=== PATIENT | male | born 1955 | race Two or more races ===

== ENCOUNTER → 2016-09-29 | Outpatient (CLI) | payer MEDICARE ==
[2016-09-29 10:10] LABS: Urine RBC None Seen /hpf (0 - 3)
[2016-09-29 10:25] LABS: CONDITION Y; DEFINITIVE SEE PRINTOUT; Hematocrit 48.6 % (41.0-53.0); Hemoglobin 16.8 g/dL (13.5-17.5); Mean Corpuscular Hemoglobin 34.3 pg (28.0-32.0); Mean Corpuscular Hgb Conc. 34.6 g/dL (32.0-36.0); Mean Corpuscular Volume 99.2 fL (80.0-100.0); Mean Platelet Volume 7.5 fL (7.4-10.4); Platelet Count (auto) 248 10^3/uL (140-450); Red Cell Distribution Width 14.1 % (11.6-16.0); White Blood Cell 7.4 10^3/uL (4.4-10.8)
[2016-09-29 10:28] LABS: Metamyelocytes % 0; Myelocytes % 0; Promyelocytes % 0; Reactive Lymphocytes 0
[2016-09-29 10:37] LABS: Urine Bilirubin Negative (Negative); Urine Blood Negative /uL (Negative); Urine Color Yellow (Yellow); Urine Glucose Normal (Normal); Urine Ketone Negative (Negative); Urine Nitrite Negative (Negative); Urine Squamous Epithelial Cell FEW /hpf (<5); Urine Urobilinogen Normal (Negative); Urine pH 6.5 (5.0-8.0)
[2016-09-29 10:48] LABS: Albumin 3.9 g/dL (3.4-5.0); BUN/Creatinine Ratio 16.2; Bilirubin, Total 0.6 mg/dL (0.2-1.0); Calcium 8.9 mg/dL (8.5-10.1); Total Protein 7.7 g/dL (6.4-8.2)
[2016-09-29 10:54] LABS: Platelet Estimate Adequate; RBC Morphology Normal
== END | disposition home or self-care (01) ==
LOC: LAB 10:00
PROVIDERS: ATTEND Family Medicine
DX: E78.5 Hyperlipidemia, unspecified (principal)
CPT/HCPCS: 36415; 80053; 80061; 81001; 85007; 85027

== ENCOUNTER → 2017-12-01 | Outpatient (CLI) | payer MEDICARE ==
[2017-12-01 12:43] LABS: Hematocrit 46.9 % (41.0-53.0); Hemoglobin 16.1 g/dL (13.5-17.5); Mean Corpuscular Hemoglobin 33.8 pg (28.0-32.0); Mean Corpuscular Hgb Conc. 34.3 g/dL (32.0-36.0); Mean Corpuscular Volume 98.7 fL (80.0-100.0); Platelet Count (auto) 188 10^3/uL (140-450); Red Blood Cells 4.75 10^6/uL (4.5-5.90); Red Cell Distribution Width 14.3 % (11.8-14.3); White Blood Cell 7.9 10^3/uL (4.4-10.8)
[2017-12-01 12:48] LABS: Urine Bacteria NONE SEEN /hpf (None Seen); Urine Blood Negative /uL (Negative); Urine Mucus FEW (None Seen); Urine Specific Gravity 1.023 (1.001-1.035); Urine WBC 2 /hpf (0 - 3)
[2017-12-01 12:54] LABS: Band Neutrophils % (manual) 0; Basophils % (manual) 0 (0.0-2.0); Blast Cells 0; Metamyelocytes % 0; Myelocytes % 0; Promyelocytes % 0; Reactive Lymphocytes 0
[2017-12-01 13:37] LABS: Albumin 4.1 g/dL (3.4-5.0); BUN/Creatinine Ratio 11.1; Bilirubin, Total 0.7 mg/dL (0.2-1.0); Calcium 8.9 mg/dL (8.5-10.1); Total Protein 7.9 g/dL (6.4-8.2)
[2017-12-01 14:00] LABS: Eosinophils % (manual) 9 (0-7); Lymphocytes % (manual) 29 (10.0-50.0); Monocytes % (manual) 9 (0-12)
== END | disposition home or self-care (01) ==
LOC: LAB 10:58
PROVIDERS: ATTEND Nurse Practitioner
DX: E78.5 Hyperlipidemia, unspecified (principal)
CPT/HCPCS: 36415; 80053; 80061; 81001; 85007; 85027

== ENCOUNTER → 2018-05-16 | Outpatient (CLI) | payer MEDICARE ==
[2018-05-16 10:46] LABS: Basophils # (auto) 0.1 uL; Eosinophils # (auto) 0.7 uL; Hemoglobin 18.9 g/dL (13.5-17.5); Monocytes # (auto) 0.5 uL; Neutrophils # (auto) 4.6 uL; White Blood Cell 7.1 10^3/uL (4.4-10.8)
[2018-05-16 10:48] LABS: Hematocrit 54.1 % (41.0-53.0); Lymphocytes # (auto) 1.2 uL; Lymphocytes % (auto) 17.6 % (10.0-50.0); Mean Corpuscular Hemoglobin 35.7 pg (28.0-32.0); Mean Corpuscular Hgb Conc. 34.9 g/dL (32.0-36.0); Mean Corpuscular Volume 102.3 fL (80.0-100.0); Neutrophils % (auto) 64.4 % (37.0-80.0); Nucleated Red Blood Cells % 1.1 %; Platelet Count (auto) 200 10^3/uL (140-450); Red Blood Cells 5.29 10^6/uL (4.5-5.90); Red Cell Distribution Width 13.3 % (11.8-14.3)
[2018-05-16 11:19] LABS: Chloride 102 mmol/L (98-107); Potassium 3.9 mmol/L (3.5-5.1); Sodium 137 mmol/L (136-145)
[2018-05-16 11:30] LABS: Alanine Aminotransferase 50 U/L (16-61); Albumin 3.9 g/dL (3.4-5.0); Alkaline Phosphatase 90 U/L (45-117); Anion Gap 8 (5-15); Aspartate Aminotransferase 19 U/L (15-37); BUN/Creatinine Ratio 14.5; Bilirubin, Total 0.7 mg/dL (0.2-1.0); Blood Urea Nitrogen 16 mg/dL (7-18); Carbon Dioxide 27 mmol/L (21-32); Cholesterol 246 mg/dL (< 200); GFR African American 87 mL/min; GFR Non-African American 72 mL/min; Glucose 378 mg/dL (74-106); HDL Cholesterol 40 mg/dL (40-59); Total Protein 7.9 g/dL (6.4-8.2); Triglycerides 425 mg/dL (< 150); Urine Bacteria NONE SEEN /hpf (None Seen); Urine Blood Negative /uL (Negative); Urine Specific Gravity 1.039 (1.001-1.035); Urine WBC <1 /hpf (0 - 3)
== END | disposition home or self-care (01) ==
LOC: LAB 10:06
PROVIDERS: ATTEND Nurse Practitioner
DX: E78.5 Hyperlipidemia, unspecified (principal); R73.9 Hyperglycemia, unspecified
CPT/HCPCS: 36415; 80053; 80061; 81001; 83036; 84443; 85025

== ENCOUNTER → 2018-08-11 | Outpatient (CLI) | payer MEDICARE ==
[2018-08-11 10:51] LABS: Hemoglobin 16.4 g/dL (13.5-17.5); Mean Corpuscular Hemoglobin 34.1 pg (28.0-32.0); Mean Corpuscular Hgb Conc. 34.5 g/dL (32.0-36.0)
[2018-08-11 10:53] LABS: Hematocrit 47.5 % (41.0-53.0); Mean Corpuscular Volume 98.7 fL (80.0-100.0); Platelet Count (auto) 208 10^3/uL (140-450); Red Blood Cells 4.81 10^6/uL (4.5-5.90); Red Cell Distribution Width 13.3 % (11.8-14.3); White Blood Cell 8.2 10^3/uL (4.4-10.8)
[2018-08-11 10:58] LABS: Basophils % (manual) 0 (0.0-2.0); Blast Cells 0; Metamyelocytes % 0; Myelocytes % 0; Promyelocytes % 0; Reactive Lymphocytes 0
[2018-08-11 11:02] LABS: Urine Bacteria NONE SEEN /hpf (None Seen); Urine Blood Negative /uL (Negative); Urine Mucus FEW (None Seen); Urine Specific Gravity 1.026 (1.001-1.035); Urine WBC 3 /hpf (0 - 3)
[2018-08-11 11:20] LABS: Albumin 3.9 g/dL (3.4-5.0); Potassium 4.2 mmol/L (3.5-5.1)
[2018-08-11 11:27] LABS: BUN/Creatinine Ratio 15.2; Bilirubin, Total 0.6 mg/dL (0.2-1.0); Total Protein 7.6 g/dL (6.4-8.2)
[2018-08-11 13:56] LABS: Band Neutrophils % (manual) 0; Eosinophils % (manual) 17 (0-7); Lymphocytes % (manual) 26 (10.0-50.0); Monocytes % (manual) 7 (0-12)
== END | disposition home or self-care (01) ==
LOC: LAB 10:23
PROVIDERS: ATTEND Nurse Practitioner
DX: E78.5 Hyperlipidemia, unspecified (principal); E11.29 Type 2 diabetes mellitus with other diabetic kidney complication
CPT/HCPCS: 36415; 80053; 80061; 81001; 82043; 83036; 84443; 85007; 85027

== ENCOUNTER → 2018-11-30 | Outpatient (CLI) | payer MEDICARE ==
[2018-11-30 11:42] LABS: Hematocrit 46.8 % (41.0-53.0); Hemoglobin 16.3 g/dL (13.5-17.5); Mean Corpuscular Hemoglobin 33.9 pg (28.0-32.0); Mean Corpuscular Hgb Conc. 34.9 g/dL (32.0-36.0); Mean Corpuscular Volume 97.2 fL (80.0-100.0); Platelet Count (auto) 180 10^3/uL (140-450); Red Blood Cells 4.82 10^6/uL (4.5-5.90); Red Cell Distribution Width 13.6 % (11.8-14.3); White Blood Cell 7.4 10^3/uL (4.4-10.8)
[2018-11-30 11:45] LABS: Basophils % (manual) 0 (0.0-2.0); Blast Cells 0; Metamyelocytes % 0; Myelocytes % 0; Promyelocytes % 0; Reactive Lymphocytes 0
[2018-11-30 11:49] LABS: Urine Blood Negative /uL (Negative); Urine Specific Gravity 1.017 (1.001-1.035)
[2018-11-30 12:12] LABS: Band Neutrophils % (manual) 7; Eosinophils % (manual) 22 (0-7); Lymphocytes % (manual) 19 (10.0-50.0); Monocytes % (manual) 7 (0-12)
[2018-11-30 12:13] LABS: Albumin 4.1 g/dL (3.4-5.0); BUN/Creatinine Ratio 13.9; Calcium 8.9 mg/dL (8.5-10.1)
[2018-11-30 12:19] LABS: Bilirubin, Total 0.7 mg/dL (0.2-1.0); Total Protein 7.6 g/dL (6.4-8.2)
== END | disposition home or self-care (01) ==
LOC: LAB 10:58
PROVIDERS: ATTEND Nurse Practitioner
DX: Z11.2 Encounter for screening for other bacterial diseases (principal); E11.9 Type 2 diabetes mellitus without complications; E78.5 Hyperlipidemia, unspecified
CPT/HCPCS: 36415; 80053; 80061; 81003; 82043; 83036; 84443; 85007; 85027

== ENCOUNTER → 2019-04-24 | Outpatient (CLI) | payer MEDICARE ==
[2019-04-24 11:12] LABS: Basophils # (auto) 0.1 uL; Eosinophils # (auto) 0.9 uL; Hemoglobin 16.9 g/dL (13.5-17.5); Lymphocytes # (auto) 1.2 uL; Monocytes # (auto) 0.5 uL; Neutrophils # (auto) 3.6 uL; Nucleated Red Blood Cells % 0.1 %; White Blood Cell 6.3 10^3/uL (4.4-10.8)
[2019-04-24 11:14] LABS: Basophils % (auto) 1.1 % (0.0-2.0); Hematocrit 48.5 % (41.0-53.0); Lymphocytes % (auto) 18.4 % (10.0-50.0); Mean Corpuscular Hemoglobin 34.1 pg (28.0-32.0); Mean Corpuscular Hgb Conc. 34.8 g/dL (32.0-36.0); Mean Corpuscular Volume 98.1 fL (80.0-100.0); Monocytes % (auto) 8.6 % (0.0-12.0); Neutrophils % (auto) 56.9 % (37.0-80.0); Platelet Count (auto) 195 10^3/uL (140-450); Red Blood Cells 4.94 10^6/uL (4.5-5.90); Red Cell Distribution Width 13.7 % (11.8-14.3)
[2019-04-24 11:57] LABS: Albumin 3.9 g/dL (3.4-5.0); Calcium 8.9 mg/dL (8.5-10.1)
[2019-04-24 12:02] LABS: BUN/Creatinine Ratio 14.1; Bilirubin, Total 0.6 mg/dL (0.2-1.0); Total Protein 7.6 g/dL (6.4-8.2)
== END | disposition home or self-care (01) ==
LOC: LAB 10:47
PROVIDERS: ATTEND Nurse Practitioner
DX: E11.9 Type 2 diabetes mellitus without complications (principal); E78.5 Hyperlipidemia, unspecified
CPT/HCPCS: 36415; 80053; 80061; 83036; 85025

== ENCOUNTER → 2019-09-26 | Outpatient (CLI) | payer MEDICARE ==
[2019-09-26 12:05] LABS: Urine Bacteria FEW /hpf (None Seen); Urine Blood Negative /uL (Negative); Urine Mucus FEW (None Seen); Urine Specific Gravity 1.032 (1.001-1.035); Urine WBC 10 /hpf (0 - 3)
[2019-09-26 12:08] LABS: White Blood Cell 6.1 10^3/uL (4.4-10.8)
[2019-09-26 12:10] LABS: Hematocrit 46.1 % (41.0-53.0); Hemoglobin 16.1 g/dL (13.5-17.5); Mean Corpuscular Hgb Conc. 34.9 g/dL (32.0-36.0); Mean Corpuscular Volume 103.1 fL (80.0-100.0); Platelet Count (auto) 155 10^3/uL (140-450); Red Blood Cells 4.47 10^6/uL (4.5-5.90); Red Cell Distribution Width 13.6 % (11.8-14.3)
[2019-09-26 12:21] LABS: Band Neutrophils % (manual) 0; Basophils % (manual) 0 (0.0-2.0); Blast Cells 0; Metamyelocytes % 0; Myelocytes % 0; Promyelocytes % 0; Reactive Lymphocytes 0
[2019-09-26 12:29] LABS: Albumin 4.1 g/dL (3.4-5.0); Calcium 8.6 mg/dL (8.5-10.1); Potassium 4.3 mmol/L (3.5-5.1)
[2019-09-26 12:33] LABS: BUN/Creatinine Ratio 17.1; Bilirubin, Total 1.1 mg/dL (0.2-1.0); Total Protein 7.3 g/dL (6.4-8.2)
[2019-09-26 12:39] LABS: Eosinophils % (manual) 17 (0-7); Lymphocytes % (manual) 25 (10.0-50.0); Monocytes % (manual) 5 (0-12)
== END | disposition home or self-care (01) ==
LOC: LAB 11:46
PROVIDERS: ATTEND Nurse Practitioner
DX: E11.9 Type 2 diabetes mellitus without complications (principal); I10 Essential (primary) hypertension; E78.5 Hyperlipidemia, unspecified
CPT/HCPCS: 36415; 80053; 80061; 81001; 82043; 83036; 84443; 85007; 85027

== ENCOUNTER → 2020-06-18 | Outpatient (CLI) | payer MEDICARE ==
[2020-06-18 10:20] LABS: Hemoglobin 16.4 g/dL (13.5-17.5)
[2020-06-18 10:22] LABS: Hematocrit 46.8 % (41.0-53.0); Mean Corpuscular Hemoglobin 35.2 pg (28.0-32.0); Mean Corpuscular Volume 100.7 fL (80.0-100.0); Platelet Count (auto) 179 10^3/uL (140-450); Red Blood Cells 4.65 10^6/uL (4.5-5.90); Red Cell Distribution Width 13.2 % (11.8-14.3)
[2020-06-18 10:24] LABS: Band Neutrophils % (manual) 0; Blast Cells 0; Metamyelocytes % 0; Promyelocytes % 0; Reactive Lymphocytes 0
[2020-06-18 10:33] LABS: Albumin 3.9 g/dL (3.4-5.0); Calcium 9.2 mg/dL (8.5-10.1); Potassium 4.4 mmol/L (3.5-5.1)
[2020-06-18 10:39] LABS: BUN/Creatinine Ratio 16.3; Bilirubin, Total 0.7 mg/dL (0.2-1.0); Total Protein 7.4 g/dL (6.4-8.2)
[2020-06-18 11:22] LABS: Basophils % (manual) 1 (0.0-2.0); Eosinophils % (manual) 25 (0-7); Lymphocytes % (manual) 21 (10.0-50.0); Monocytes % (manual) 9 (0-12); Myelocytes % 1
[2020-06-18 12:11] LABS: Urine Bacteria NONE SEEN /hpf (None Seen); Urine Blood Negative /uL (Negative); Urine Specific Gravity 1.012 (1.001-1.035); Urine WBC 1 /hpf (0 - 3)
== END | disposition home or self-care (01) ==
LOC: LAB 09:47
PROVIDERS: ATTEND Nurse Practitioner
DX: I10 Essential (primary) hypertension (principal); E11.9 Type 2 diabetes mellitus without complications; E78.5 Hyperlipidemia, unspecified
CPT/HCPCS: 36415; 80053; 80061; 81001; 82043; 83036; 85007; 85027

== ENCOUNTER → 2020-10-15 | Outpatient (CLI) | payer MEDICARE ==
[2020-10-15 08:59] LABS: Cholesterol 164 mg/dL (< 200); HDL Cholesterol 44 mg/dL (40-59); LDL Cholesterol 84 mg/dL (< 100); Triglycerides 173 mg/dL (< 150)
== END | disposition home or self-care (01) ==
LOC: LAB 07:43
PROVIDERS: ATTEND Nurse Practitioner
DX: E78.5 Hyperlipidemia, unspecified (principal)
CPT/HCPCS: 36415; 80061

== ENCOUNTER → 2021-06-09 | Outpatient (CLI) | payer MEDICARE ==
[2021-06-09 09:37] LABS: Hematocrit 44.7 % (41.0-53.0); Mean Corpuscular Hgb Conc. 35.9 g/dL (32.0-36.0); Mean Corpuscular Volume 100.4 fL (80.0-100.0); Red Blood Cells 4.45 10^6/uL (4.5-5.90); Red Cell Distribution Width 13.1 % (11.8-14.3); Urine Bacteria NONE SEEN /hpf (None Seen); Urine Blood Negative /uL (Negative); Urine Specific Gravity 1.007 (1.001-1.035); Urine WBC 1 /hpf (0 - 3); White Blood Cell 6.2 10^3/uL (4.4-10.8)
[2021-06-09 09:41] LABS: Band Neutrophils % (manual) 0; Basophils % (manual) 0 (0.0-2.0); Blast Cells 0; Metamyelocytes % 0; Myelocytes % 0; Promyelocytes % 0; Reactive Lymphocytes 0
[2021-06-09 10:02] LABS: Eosinophils % (manual) 27 (0-7); Lymphocytes % (manual) 19 (10.0-50.0); Monocytes % (manual) 6 (0-12)
[2021-06-09 10:05] LABS: Potassium 4.3 mmol/L (3.5-5.1)
[2021-06-09 10:17] LABS: BUN/Creatinine Ratio 13.7; Bilirubin, Total 0.5 mg/dL (0.2-1.0); Calcium 8.9 mg/dL (8.5-10.1); Total Protein 7.7 g/dL (6.4-8.2)
== END | disposition home or self-care (01) ==
LOC: LAB 09:16
PROVIDERS: ATTEND Nurse Practitioner
DX: E11.9 Type 2 diabetes mellitus without complications (principal); I10 Essential (primary) hypertension; E78.5 Hyperlipidemia, unspecified
CPT/HCPCS: 36415; 80053; 80061; 81001; 82043; 83036; 85007; 85027

== ENCOUNTER → 2022-03-31 | Outpatient (CLI) | payer MEDICARE ==
[2022-03-31 10:31] LABS: Red Blood Cells 4.75 10^6/uL (4.5-5.90); White Blood Cell 6.7 10^3/uL (4.4-10.8)
[2022-03-31 10:32] LABS: Hematocrit 48.1 % (41.0-53.0); Hemoglobin 16.5 g/dL (13.5-17.5); Mean Corpuscular Hemoglobin 34.7 pg (28.0-32.0); Mean Corpuscular Hgb Conc. 34.3 g/dL (32.0-36.0); Mean Corpuscular Volume 101.2 fL (80.0-100.0); Red Cell Distribution Width 13.5 % (11.8-14.3)
[2022-03-31 10:34] LABS: Basophils % (manual) 0 (0.0-2.0); Blast Cells 0; Metamyelocytes % 0; Myelocytes % 0; Promyelocytes % 0
[2022-03-31 11:00] LABS: Urine Bacteria NONE SEEN /hpf (None Seen); Urine Blood Negative /uL (Negative); Urine Specific Gravity 1.004 (1.001-1.035); Urine WBC <1 /hpf (0 - 3)
[2022-03-31 11:04] LABS: Albumin 4.2 g/dL (3.4-5.0); Calcium 8.9 mg/dL (8.5-10.1); Potassium 4.5 mmol/L (3.5-5.1)
[2022-03-31 11:10] LABS: BUN/Creatinine Ratio 13.4; Bilirubin, Total 0.9 mg/dL (0.2-1.0)
[2022-03-31 12:30] LABS: Band Neutrophils % (manual) 4; Eosinophils % (manual) 25 (0-7); Lymphocytes % (manual) 25 (10.0-50.0); Monocytes % (manual) 7 (0-12); Reactive Lymphocytes 3
== END | disposition home or self-care (01) ==
LOC: LAB 10:14
PROVIDERS: ATTEND Nurse Practitioner
DX: I10 Essential (primary) hypertension (principal); E78.5 Hyperlipidemia, unspecified; E11.9 Type 2 diabetes mellitus without complications
CPT/HCPCS: 36415; 80053; 80061; 81001; 82043; 83036; 85007; 85027

== ENCOUNTER → 2023-10-01 | Outpatient (CLI) | payer MEDICARE ==
[2023-10-01 11:28] LABS: Basophils # (auto) 0.1 10 ^3/uL (0-0.2); Basophils % (auto) 0.9 % (0.0-2.0); Eosinophils # (auto) 0.4 10 ^3/uL (0-0.8); Neutrophils # (auto) 3.8 10 ^3/uL (1.6-8.6); Nucleated Red Blood Cells % 0.1 %
[2023-10-01 11:30] LABS: Hematocrit 45.1 % (41.0-53.0); Hemoglobin 15.8 g/dL (13.5-17.5); Lymphocytes % (auto) 16.3 % (10.0-50.0); Mean Corpuscular Hgb Conc. 35.1 g/dL (32.0-36.0); Mean Corpuscular Volume 105.4 fL (80.0-100.0); Monocytes # (auto) 0.7 10 ^3/uL (0-1.3); Monocytes % (auto) 11.3 % (0.0-12.0); Neutrophils % (auto) 64.5 % (37.0-80.0); Platelet Count (auto) 156 10^3/uL (140-450); Red Blood Cells 4.28 10^6/uL (4.5-5.90); Red Cell Distribution Width 13.7 % (11.8-14.3); White Blood Cell 5.9 10^3/uL (4.4-10.8)
[2023-10-01 11:59] LABS: Urine Bacteria FEW /hpf (None Seen); Urine Blood Negative /uL (Negative); Urine Clarity Clear (Clear); Urine Color Yellow (Yellow); Urine Mucus FEW (None Seen); Urine Protein, UAD 1+ (Negative); Urine Specific Gravity 1.022 (1.001-1.035); Urine Urobilinogen Normal (Negative); Urine WBC 3 /hpf (0 - 3); Urine pH 5.5 (5.0-9.0)
[2023-10-01 12:07] LABS: Alanine Aminotransferase 138 U/L (7-40); Albumin 4.5 g/dL (3.2-4.8); Alkaline Phosphatase 135 U/L (46-116); Anion Gap 8 (5-15); Aspartate Aminotransferase 101 U/L (13-40); BUN/Creatinine Ratio 12.6 (10.0-20.0); Blood Urea Nitrogen 13 mg/dL (9-23); Calcium 9.8 mg/dL (8.7-10.4); Carbon Dioxide 26 mmol/L (20-30); Chloride 105 mmol/L (98-107); Cholesterol 258 mg/dL (< 200); Glucose 244 mg/dL (74-106); HDL Cholesterol 80 mg/dL (40-59); LDL Cholesterol 156 mg/dL (< 100); Sodium 139 mmol/L (136-145); Triglycerides 190 mg/dL (< 150)
[2023-10-01 12:08] LABS: Total Protein 7.6 g/dL (5.7-8.2)
[2023-10-01 12:22] LABS: Amphetamine Screen, Urine Neg (NEGATIVE)
[2023-10-01 12:23] LABS: Barbiturate Scree,Urine Neg (NEGATIVE); Benzodiazephine Screen, Urine Neg (NEGATIVE); Cannabinoid Screen, Urine Neg (NEGATIVE); Cocaine Screen, Urine Neg (NEGATIVE); Opiate Scree,Urine Neg (NEGATIVE); Phencyclidine Screen, Urine Neg (NEGATIVE)
== END | disposition home or self-care (01) ==
LOC: LAB 11:10
PROVIDERS: ATTEND Nurse Practitioner
DX: I10 Essential (primary) hypertension (principal); E11.9 Type 2 diabetes mellitus without complications; E78.5 Hyperlipidemia, unspecified; Z79.899 Other long term (current) drug therapy
CPT/HCPCS: 36415; 80053; 80061; 80307; 81001; 83036; 84443; 85025

== ENCOUNTER 2024-11-10 13:27 | Inpatient (IN) | payer MEDICARE ==
[~2024-11-10] VITALS: Ht 167.6 cm; Wt 78.0 kg
[2024-11-10 14:55] LABS: Hemoglobin 9.1 g/dL (13.5-17.5); Nucleated Red Blood Cells % 0.0 %
[2024-11-10 14:58] LABS: Hematocrit 28.4 % (41.0-53.0); Mean Corpuscular Hemoglobin 25.4 pg (28.0-32.0); Mean Corpuscular Volume 78.8 fL (80.0-100.0)
--- NOTE | 2024-11-10 15:03 | ED.PDOC ---
History of Present Illness HPI Comments 69-year-old male who is Vietnamese-speaking presents to the ER with no prior medical history associated with a chief complaint of abdominal pain. Patient reports on having dizziness and being unbalanced for the past day due from abdomen is distention. Patient states that his PCP sent him to the ER stating that if he does not go and get his abdomen drained he will soon. Denies chills, fever, N/V/D, SOB, CP. No other associated symptoms, modifiers, recent injuries or sick contacts present at this time. Chief Complaint: Abdominal Pain Time Seen by MD: 14:30 Reviewed Notes: Nurses Notes, Medications, Allergies Allergies: Coded Allergies: NO KNOWN ALLERGIES (Unverified , 11/10/24) Information Source: Patient Mode of Arrival: Ambulatory Severity: Moderate Timing: Came on: Gradually Duration: Since onset Prehospital treatment: None Past Medical History PAST MEDICAL HISTORY: Denies Surgical History: Denies all surgeries Family History Family History: Reviewed,noncontributory to illness, Unknown Social History Smoker: Non-Smoker Alcohol: Denies ETOH Use Drugs: Denies Drug Use Lives In: Home Constitutional: denies: chills, diaphoresis, fatigue, fever, malaise, sweats, weakness, others EENTM: denies: blurred vision, double vision, ear bleeding, ear discharge, ear drainage, ear pain, ear ringing, eye pain, eye redness, hearing loss, mouth pain, mouth swelling, nasal discharge, nose bleeding, nose congestion, nose pain, photophobia, tearing, throat pain, throat swelling, voice changes, others Respiratory: denies: cough, hemoptysis, orthopnea, SOB at rest, shortness of breath, SOB with excertion, stridor, wheezing, others Cardiovascular: denies: chest pain, dizzy spells, diaphoresis, Dyspnea on exertion, edema, irregular heart beat, left arm pain, lightheadedness, palpitations, PND, syncope, others Gastrointestinal: reports: abdomen distended; denies: abdominal pain, blood streaked bowels, constipated, diarrhea, dysphagia, difficulty swallowing, hematemesis, melena, nausea, poor appetite, poor fluid intake, rectal bleeding, rectal pain, vomiting, others Genitourinary: denies: burning, dysuria, flank pain, frequency, hematuria, incontinence, penile discharge, penile sore, pain, testicle pain, testicle swelling, urgency, others Neurological: reports: dizziness; denies: fainting, headache, left sided numbness, left sided weakness, numbness, paresthesia, pre-existing deficit, right sided numbness, right sided weakness, seizure, speech problems, tingling, tremors, weakness, others Musculoskeletal: denies: back pain, gout, joint pain, joint swelling, muscle pain, muscle stiffness, neck pain, others Integumetry: denies: bruises, change in color, change in hair/nails, dryness, laceration, lesions, lumps, rash, wounds, others Allergic/Immunocompromised: denies: Difficulty Healing, Frequent Infections, Hives, Itching, others Hematologic/Lymphatic: denies: anemia, blood clots, easy bleeding, easy bruisin g, swollen glands, others Endocrine: denies: excessive hunger, excessive sweating, excessive thirst, excessive urination, flushing, intolerance to cold, intolerance to heat, unexplained weight gain, unexplained weight loss, others Psychiatric: denies: anxiety, bipolar disorder, depression, hopeless, panic disorder, schizophrenia, sleepless, suicidal, others All Other Systems: Reviewed and Negative Physical Exam Exam Comments Patient appears uncomfortable General Appearance: No Apparent Distress, Normal HEENT: Normal ENT Inspection, Pharynx Normal, TMs Normal Neck: Full Range of Motion, Non-Tender, Normal, Normal Inspection Respiratory: Chest Non-Tender, Lungs Clear, No Accessory Muscle Use, No Resp iratory Distress, Normal Breath Sounds Cardiovascular: No Edema, No JVD, No Murmur, No Gallop, Normal Peripheral Pulses, Regular Rate/Rhythm Breast Exam: Deferred Gastrointestinal: Distended (Abdomen is distention), No Organomegaly, Non Tender, No Pulsatile Mass, Normal Bowel Sounds, Soft Genitalia: Deferred Pelvic: Deferred Rectal: Deferred Extremities: No calf tenderness, Normal capillary refill, Normal inspection, Normal range of motion, Non-tender, No pedal edema Musculoskeletal : Apperance: Normal Neurologic: Alert, Dizziness, Normal Affect, Normal Mood, No Sensory Deficits Cerebellar Function: Normal Reflexes: Normal Skin: Dry, Normal Color, Warm Lymphatic: No Adenopathy Was a procedure done? Was a procedure done?: No Differential Dx Considerations may include: Worsening ascites, viral syndrome, ACS X-Ray, Labs, Meds, VS Vital Signs Date Time Temp Pulse Resp B/P (MAP) Pulse Ox O2 Delivery O2 Flow Rate FiO2 11/10/24 16:48 97.3 85 16 142/86 (104) 94 97.3 11/10/24 13:42 105 11/10/24 13:30 98.1 107 24 134/84 95 98.1 Lab Test 11/10/24 16:10 11/10/24 14:40 Range/Units Troponin I High Sensitivity < 3 L 3 L </=54 ng/L White Blood Count 6.9 4.4-10.8 10^3/uL Red Blood Count 3.60 L 4.5-5.90 10^6/uL Hemoglobin 9.1 L 13.5-17.5 g/dL Hematocrit 28.4 L 41.0-53.0 % Mean Corpuscular Volume 78.8 L 80.0-100.0 fL Mean Corpuscular Hemoglobin 25.4 L 28.0-32.0 pg Mean Corpuscular Hemoglobin Concent 32.2 32.0-36.0 g/dL Red Cell Distribution Width 33.1 H 11.8-14.3 % Platelet Count 170 140-450 10^3/uL Mean Platelet Volume 8.1 6.9-10.8 fL Neutrophils (%) (Auto) 56.9 37.0-80.0 % Lymphocytes (%) (Auto) 17.1 10.0-50.0 % Monocytes (%) (Auto) 11.2 0.0-12.0 % Eosinophils (%) (Auto) 13.6 H 0.0-7.0 % Basophils (%) (Auto) 1.2 0.0-2.0 % Neutrophils # (Auto) 3.9 1.6-8.6 10 ^3/uL Lymphocytes # (Auto) 1.2 0.4-5.4 10 ^3/uL Monocytes # (Auto) 0.8 0-1.3 10 ^3/uL Eosinophils # (Auto) 0.9 H 0-0.8 10 ^3/uL Basophils # (Auto) 0.1 0-0.2 10 ^3/uL Nucleated Red Blood Cells 0.0 % Platelet Estimate Adequate Anisocytosis (manual) Marked Microcytosis Slight Sodium Level 141 136-145 mmol/L Potassium Level 3.5 3.5-5.1 mmol/L Chloride Level 106 98-107 mmol/L Carbon Dioxide Level 26 20-31 mmol/L Anion Gap 9 5-15 Blood Urea Nitrogen 10 9-23 mg/dL Creatinine 1.04 0.700-1.30 mg/dL Glomerular Filtration Rate Calc 78 >90 mL/min BUN/Creatinine Ratio 9.6 L 10.0-20.0 Serum Glucose 133 H 74-106 mg/dL Calcium Level 8.1 L 8.7-10.4 mg/dL Time of 1ST Reevaluation: 15:00 Reevaluation 1ST: Unchanged Patient Education/Counseling: Diagnosis, Treatment, Prognosis Family Education/Counseling: No Family Present SEPSIS Sepsis Screen Date sepsis recognized/suspect: Nov 10, 2024 Time Sepsis recognized/suspect: 1326 Recent Procedure: No On Antibiotic Therapy: No Respiratory Rate >20: Yes Heart Rate >90: Yes Temp<36 C (96.8 F) or >38.3 C: No SBP <90 or MAP <65 mmHG: No New Acute Mental Status Change: No Is the patient on CPAP, BIPAP,: No Physician Orders Electrocardigram (11/10/24 13:46) Urinalysis (11/10/24 14:26) Chest Portable (11/10/24 17:27) Ct Ab Pel With Iv Con Only (11/10/24 17:27) Vital Signs Date Time Temp Pulse Resp B/P (MAP) Pulse Ox O2 Delivery O2 Flow Rate FiO2 11/10/24 16:48 97.3 85 16 142/86 (104) 94 97.3 11/10/24 13:42 105 11/10/24 13:30 98.1 107 24 134/84 95 98.1 Laboratory Tests Test 11/10/24 14:40 White Blood Count 6.9 10^3/uL (4.4-10.8) Departure 1 Departure Time of Disposition: 18:06 (Patient with a worsening ascites causing shortness of breath. We will admit patient for large volume paracentesis) Impression: Primary Impression: Shortness of breath Additional Impressions: Abdominal ascites Qualified Codes: R18.8 - Other ascites Generalized weakness Disposition: ADMITTED INPATIENT Admit to: Med Surg Condition: Serious Critical Care Note Critical Care Time?: No Stability Stability form required: No I personally scribed for ALLEGRA TAYOLR MD ([email or web address]) on 11/10/24 at 15:03. Electronically submitted by Blaze Caballero ([email or web address]). ALLEGRA TAYLOR MD Nov 10, 2024 15:03
[2024-11-10 15:06] LABS: Chloride 106 mmol/L (98-107); Sodium 141 mmol/L (136-145)
[2024-11-10 15:07] LABS: Anion Gap 9 (5-15); Carbon Dioxide 26 mmol/L (20-31)
[2024-11-10 15:11] LABS: Calcium 8.1 mg/dL (8.7-10.4); Potassium 3.5 mmol/L (3.5-5.1)
[2024-11-10 15:12] LABS: BUN/Creatinine Ratio 9.6 (10.0-20.0); Blood Urea Nitrogen 10 mg/dL (9-23)
[2024-11-10 15:16] LABS: Glucose 133 mg/dL (74-106)
[2024-11-10 15:54] LABS: Anisocytosis Marked
[2024-11-10 18:55] LABS: Urine Protein, UAD Negative (Negative)
--- NOTE | 2024-11-10 18:58 | DVH ---
INDICATION: FLUID CHECK TECHNIQUE: Multiple real-time sonographic images of the kidneys and bladder were obtained. COMPARISON: None FINDINGS/IMPRESSION: Moderate ascites seen within all 4 quadrants.
--- NOTE | 2024-11-10 22:18 | DVH ---
CHEST RADIOGRAPH Indication: SOB Technique: Single frontal view of the chest was obtained Comparison: XR CHEST 1 VIEW on DOS: 10/20/24, XR CHEST 1 VIEW on DOS: 10/08/24 FINDINGS: Lines and Tubes: None Lungs: No focal consolidation. Pleura: No effusion. No pneumothorax. Cardiomediastinal contours: Unremarkable Bones: No acute osseous abnormality. IMPRESSION: 1. No acute cardiopulmonary disease.
--- NOTE | 2024-11-10 22:42 | DVH ---
CLINICAL HISTORY: abdominal pain TECHNIQUE: CT of the abdomen and pelvis was performed with intravenous contrast. This exam was perfor med according to our departmental dose optimization program. Up-to-date CT equipment and radiation do se reduction techniques are utilized as appropriate. 13.24 CTDIVol: 13.24 mGy DLP: 799.63 mGy-cm WID: COMPARISON: US ABDOMEN LIMITED on DOS: 11/10/24 Lower Thorax: 5 mm right middle lobe pulmonary nodule on series 4, image 7. There is linear bibasilar scarring and/or atelectasis . there is a 1.1 cm nodule which contains internal calcification on seri es 4, image 17. Mild cardiomegaly and trace pericardial fluid. At least mild calcified coronary arter y disease partially imaged. Partially imaged mediastinal and right hilar calcified lymph nodes. Liver and Biliary system: Cirrhotic liver. There is mild hepatic steatosis. Portosystemic collateral vessels are seen. Major portal veins are patent. No discrete hepatic lesion. Gallbladder is normal c aliber. There is no biliary ductal dilatation. Spleen: Mild Splenomegaly. Adrenal Glands and Kidneys: Unremarkable. Pancreas and Retroperitoneum: Unremarkable. Aorta and Major Vessels: Aortoiliac vessels are patent and normal caliber containing [id number] calcified atherosclerotic plaque. Bowel, Mesentery and Peritoneal space: Normal caliber small and large bowel. Normal appendix. Mild wa ll thickening of the ascending and transverse colon. There is large volume ascites and mesenteric garland ous congestion. No free air or fluid collection. Pelvis: Mild prostatomegaly. Dystrophic calcifications in the prostate gland. Mild wall thickening o f the urinary bladder. There is no pelvic lymphadenopathy. Abdominal wall and Osseous Structures: There is ascites coursing into both fat containing bilateral i nguinal hernias. There is body wall edema. Bilateral rods and transpedicular screws at L3-L5 and inte rbody spaces at L3-L4 and L4-L5. Multilevel mild lower thoracic and lumbar spondylosis. IMPRESSION: 1. Cirrhosis and portal hypertension with large volume ascites, mesenteric venous congestion, mild sp lenomegaly, and portosystemic collateral vessels. 2. Mild hepatic steatosis. 3. Mild bladder wall thickening which could be related to chronic bladder outlet obstruction in the s etting of mild prostatomegaly. Correlate with urinalysis if there is clinical concern for cystitis. 4. There is a 5 mm right middle lobe pulmonary nodule, nonspecific on initial exam. If there are ris k factors for pulmonary malignancy, follow-up CT chest recommended in 1 year. 5. Mild cardiomegaly and at least mild calcified coronary artery disease partially imaged. 6. There is a 1.1 cm nodule in the left upper lobe which contains calcification likely from prior gra nulomatous infection.
[2024-11-11] VITALS (9 sets, daily range): BP systolic 122–142; BP diastolic 60–81; PULSE 70–91; RESP 16–96; TEMP 97.7–98.5; O2SAT 92–100
[2024-11-11] MEDS: IOHEXOL 300 MG/ML 100ML BOTTLE IJ ONE ×2
--- NOTE | 2024-11-11 03:17 | DVHHPRES ---
History of Present Illness Resident Creating Document: TIFFANIE ROYAL RESIDENT History of Present Illness Jamey Mcgee is a 69-year-old male past medical history of hypertension, alcohol use disorder, came to the ED with chief complaints of abdominal and leg swelling with 5/10 pain since 20 days. Patient also states having dizziness and being unbalanced for the past day due from abdomen is distention. Patient states that his PCP sent him to the ER stating that if he does not go and get his abdomen drained he will soon. Patient states that he had 2 paracentesis before this year. Patient on arrival was tachycardic, hypertensive. Liver ultrasound showed Moderate ascites seen within all [address] showed Cirrhosis and portal hypertension with large volume ascites, mesenteric venous congestion, mild splenomegaly, and portosystemic collateral vessels. Mild hepatic steatosis. Surgery consulted for possible paracentesis. Patient is admitted for further management Surgical history: spinal surgery Family history: Reviewed, noncontributory Personal history: Patient drank 5 beers per day and quit 20 days ago., denies smoking, drug use Lives with: Family Review of Systems Constitutional: Yes: Other (Dizziness, weight loss ); No: Fever, Chills, Sweats, Weakness, Malaise Eyes: No: Pain, Vision change, Conjunctivae inflammation, Eyelid inflammation, Other, Redness ENT: No: Ear pain, Ear discharge, Nose pain, Nose discharge, Nose congestion, Mouth pain, Mouth swelling, Throat pain, Throat swelling, Other Respiratory: No: Cough, Dry, Shortness of breath, SOB with excertion, Wheezing, Hemoptysis, Pleuritic Pain, Sputum, Wheezing, Other Cardiovascular: No: Chest Pain, Palpitations, Orthopnea, Paroxysmal Noc. Dyspnea, Edema, Lt Headedness, Other Gastrointestinal: No: Nausea, Vomiting, Abdominal Pain, Diarrhea, Constipation, Melena, Hematochezia, Other Genitourinary: No Dysuria, No Frequency, No Incontinence, No Hematuria, No Retention, No Other Musculoskeletal: No: other, neck pain, shoulder pain, arm pain, back pain, hand pain, leg pain, foot pain Skin: No: Rash, Lesions, Jaundice, Bruising, Other Neurological: No: Weakness, Numbness, Incoordination, Change in speech, Confusion, Seizures, Other Allergies: Coded Allergies: NO KNOWN ALLERGIES (Unverified , 11/10/24) Medications Current Medications Medications Dose Ordered Sig/Mine Route Start Time Stop Time Status Last Admin Dose Admin Ceftriaxone Sodium/Dextrose 50 ml @ 50 mls/hr DAILY IV 11/12/24 10:00 Metronidazole 100 ml @ 100 mls/hr Q8HR IV 11/11/24 14:00 Exam Vital Signs Vital Signs Date Time Temp Pulse Resp B/P (MAP) Pulse Ox O2 Delivery O2 Flow Rate FiO2 11/10/24 21:58 97.5 88 18 145/83 (103) 96 97.5 Exam General: Patient alert and oriented in person, place and time. Patient following commands. In mild distress HEENT: Normocephalic, atraumatic, moist mucous membranes Respiratory/pulmonary: Clear lungs bilaterally, vesicular murmurs present in almost all lung tang, no associated crackles or wheezes. Cardiovascular: Normal heart sounds S1 and S2 with no associated murmurs Abdomen: Abdomen moderately distended, no tenderness on palpation, fluid shift present Extremities: Bilateral 1+ pitting edema Peripheral Pulses: 3+ Radial (R). 3+ Radial (L). 3+ Dorsalis pedis (R). 3+ Dorsalis pedis(L) Skin: No rashes or pruritus, there is no sacral edema present at this time. Neurological: Intact cranial nerves with no focal neurologic deficits Psych/Mood: normal Psych/mood Labs/Xrays Labs Test 11/11/24 02:18 11/10/24 16:50 11/10/24 16:10 11/10/24 14:40 Range/Units Urine Color Yellow Yellow Urine Clarity Clear Clear Urine pH 5.5 5.0-9.0 Urine Specific [place] 1.019 1.001-1.035 Urine Protein Negative Negative Urine Ketones Negative Negative Urine Blood Negative Negative /uL Urine Nitrite Negative Negative Urine Bilirubin Negative Negative Urine Urobilinogen Normal Negative mg/dL Urine Leukocyte Esterase Negative Negative /uL Urine RBC 1 0 - 3 /hpf Urine Microscopic WBC 3 0-3 /HPF Urine Squamous Epithelial Cells Few <5 /hpf Urine Bacteria None seen None Seen /hpf Urine Hyaline Casts Few 0 - 2 /lpf Urine Glucose Normal Normal mg/dL Troponin I High Sensitivity < 3 L </=54 ng/L White Blood Count 6.9 4.4-10.8 10^3/uL Red Blood Count 3.60 L 4.5-5.90 10^6/uL Hemoglobin 9.1 L 13.5-17.5 g/dL Hematocrit 28.4 L 41.0-53.0 % Mean Corpuscular Volume 78.8 L 80.0-100.0 fL Mean Corpuscular Hemoglobin 25.4 L 28.0-32.0 pg Mean Corpuscular Hemoglobin Concent 32.2 32.0-36.0 g/dL Red Cell Distribution Width 33.1 H 11.8-14.3 % Platelet Count 170 140-450 10^3/uL Mean Platelet Volume 8.1 6.9-10.8 fL Neutrophils (%) (Auto) 56.9 37.0-80.0 % Lymphocytes (%) (Auto) 17.1 10.0-50.0 % Monocytes (%) (Auto) 11.2 0.0-12.0 % Eosinophils (%) (Auto) 13.6 H 0.0-7.0 % Basophils (%) (Auto) 1.2 0.0-2.0 % Neutrophils # (Auto) 3.9 1.6-8.6 10 ^3/uL Lymphocytes # (Auto) 1.2 0.4-5.4 10 ^3/uL Monocytes # (Auto) 0.8 0-1.3 10 ^3/uL Eosinophils # (Auto) 0.9 H 0-0.8 10 ^3/uL Basophils # (Auto) 0.1 0-0.2 10 ^3/uL Nucleated Red Blood Cells 0.0 % Platelet Estimate Adequate Anisocytosis (manual) Marked Microcytosis Slight Sodium Level 141 136-145 mmol/L Potassium Level 3.5 3.5-5.1 mmol/L Chloride Level 106 98-107 mmol/L Carbon Dioxide Level 26 20-31 mmol/L Anion Gap 9 5-15 Blood Urea Nitrogen 10 9-23 mg/dL Creatinine 1.04 0.700-1.30 mg/dL Glomerular Filtration Rate Calc 78 >90 mL/min BUN/Creatinine Ratio 9.6 L 10.0-20.0 Serum Glucose 133 H 74-106 mg/dL Calcium Level 8.1 L 8.7-10.4 mg/dL SEPSIS Sepsis Screen Date sepsis recognized/suspect: Nov 10, 2024 Time Sepsis recognized/suspect: 1327 Recent Procedure: No On Antibiotic Therapy: No Respiratory Rate >20: Yes Heart Rate >90: Yes Temp<36 C (96.8 F) or >38.3 C: No SBP <90 or MAP <65 mmHG: No New Acute Mental Status Change: No Is the patient on CPAP, BIPAP,: No Physician Orders Admit (11/10/24 22:47) Prothrombin Time W/ Inr (11/11/24 01:57) Npo (Nothing By Mouth) Diet (11/11/24 Breakfast) Metronidazole 500mg/100ml (Flagyl 500mg/ (11/11/24 14:00) Ceftriaxone 2gm/50ml (Rocephin 2gm/50ml) (11/12/24 10:00) Vital Signs Date Time Temp Pulse Resp B/P (MAP) Pulse Ox O2 Delivery O2 Flow Rate FiO2 11/10/24 21:58 97.5 88 18 145/83 (103) 96 97.5 Medications Medications Dose Ordered Sig/Mine Route Start Time Stop Time Status Last Admin Dose Admin Metronidazole 100 ml @ 100 mls/hr ONCE ONCE IV 11/11/24 02:00 11/11/24 02:59 DC 11/11/24 02:31 100 MLS/HR Assessment/Plan Assessment/Plan #Essential hypertension: Normotensive avoid any antihypertensives to start, target blood pressure 140/90 or below as per aha / ACC guidelines. #Hypochromic microcytic anemia likely due to underlying iron-deficiency: RDW, MCV low, check for GI bleed, IV ppi to continue, ferritin and iron panel to Check #Eosinophilia: Look for any atopic disease , no wheezing, other active allergic manifestations noted. #liver cirrhosis with the ascites: continue close monitoring, check for hepatitis panel #likely decompensated liver cirrhosis: Presented with moderate to severe 4 quadrant ascites, needs therapeutic versus diagnostic paracentesis, check INR, IR consult done. if noted diagnostic therapeutic Paracentesis with the appropriate compensation for albumin 2 to be done. # Concern for spontaneous bacterial peritonitis: Blood culture, post paracentesis culture pending , IV ceftriaxone and metronidazole to continue. # Diabetic: Check for HbA1c 6.8, well-controlled. Target BG 140-80. Avoid hypoglycemia in the setting of liver cirrhosis. # Acute metabolic versus toxic encephalopathy: Negative for toxins, could be due to multifactorial, advanced age, multisystem disorder, infection, delirium also higher in the differential, delirium precautions, treat underlying disease, electrolyte correction. Check for ammonia correct as needed. 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 # Cirrhosis and portal hypertension with large volume ascites, mesenteric venous congestion, mild splenomegaly, and portosystemic collateral vessels: Ruled out hepatic vein thrombosis with Doppler, check for lipase to rule out for pancreatitis. # Mild bladder wall thickening which could be related to chronic bladder outlet obstruction : On Cespedes's catheter, check for retention, bladder ultrasound,. # Mild prostatomegaly: Check SA, restart tamsulosin 0.4. Correlate with urinalysis if there is clinical concern for cystitis. Saint culture. #5 mm right middle lobe pulmonary nodule, nonspecific on initial exam: Outpatient low-dose C diff follow up. #CAD:at least mild calcified coronary artery disease partially imaged. Ruled out active chest pain, troponin negative, EKG unremarkable. #There is a 1.1 cm nodule in the left upper lobe which contains calcification likely from prior granulomatous infection: Inappropriate setting with history of immigration concerning for caseating granulomatous. Goals of care addressed with the patient for more than 37 minutes: Full code status Case discussed with Dr. Laguna , patient and nurse Plan discussed with: Patient, Son My Orders Orders - TIFFANIE ROYAL Procedure Category Date Status Time Admit ADMIT 11/10/24 Transmitted 22:47 Prothrombin Time W/ LAB 11/11/24 In Process INR 01:57 Npo (Nothing By DIET 11/11/24 Transmitted Mouth) Diet Breakfast Metronidazole PHA 11/11/24 In Process 500mg/100ml (Flagyl 14:00 Ceftriaxone 2gm/50ml PHA 11/12/24 In Process (Rocephin 2gm/50ml) 10:00 Date of Service: Nov 11, 2024 Billing Provider: MURTAZA LAGUNA MD Common Visit Codes: 80112-UAVWNZO INP/OBS CARE (HIGH) Secondary Visit Codes: 95540-OSEKOVLH CARE PLAN 30 MINUTES TIFFANIE ROYAL Nov 11, 2024 03:17 MARIA ANTONIA SEVERINO RESIDENT Nov 11, 2024 10:15
[2024-11-11 03:40] LABS: INR 1.33 (0.9-1.15); Prothrombin Time 13.7 sec (9.3-11.8)
[2024-11-11] MEDS ORDERED: METF-372 PO (03:43)
[2024-11-11] MEDS ORDERED: AML5T PO (03:43)
[2024-11-11] MEDS ORDERED: FURO40TA4 PO (03:44)
[2024-11-11] MEDS ORDERED: ATOR20TA50 PO (03:47)
--- NOTE | 2024-11-11 06:41 | ECG ---
[facility] Test Date: 2024-11-10 Test Time: 13:42:03 Pat Name: AROLDO WORRELL Department: ED Room: [facility]6T B Gender: M [employer]isher [employer]um: BINH : 1955 Requested By: ALLEGRA TAYLOR Order Number: [id number] Reading MD: Elpidio Donaldson Measurements Intervals [place] Rate: 105 P: 19 MA: 147 QRS: 55 QRSD: 78 T: -27 QT: 397 QTc: 525 Interpretive Statements Sinus tachycardia Borderline T abnormalities, diffuse leads Prolonged QT interval Electronically Signed On 11-13-2024 13:24:20 PDT by Elpidio Donaldson Please click the below link to view image of tracing.
[2024-11-11 06:58] LABS: Amphetamine Screen, Urine Neg (NEGATIVE); Barbiturate Scree,Urine Neg (NEGATIVE); Benzodiazephine Screen, Urine Neg (NEGATIVE); Cannabinoid Screen, Urine Neg (NEGATIVE); Cocaine Screen, Urine Neg (NEGATIVE); Opiate Scree,Urine Neg (NEGATIVE); Phencyclidine Screen, Urine Neg (NEGATIVE)
[2024-11-11 08:11] LABS: Alanine Aminotransferase 17 U/L (7-40); Alkaline Phosphatase 92 U/L (46-116); Anion Gap 8 (5-15); BUN/Creatinine Ratio 7.8 (10.0-20.0); Bilirubin, Total 1.2 mg/dL (0.2-1.0); Carbon Dioxide 26 mmol/L (20-31); Cholesterol 111 mg/dL (< 200); Hemoglobin 8.5 g/dL (13.5-17.5); Mean Corpuscular Hemoglobin 25.0 pg (28.0-32.0); Potassium 3.6 mmol/L (3.5-5.1); Sodium 142 mmol/L (136-145); Total Protein 6.6 g/dL (5.7-8.2); Triglycerides 87 mg/dL (< 150)
[2024-11-11 08:13] LABS: Hematocrit 26.8 % (41.0-53.0); Mean Corpuscular Volume 78.7 fL (80.0-100.0)
[2024-11-11 08:17] LABS: Albumin 2.3 g/dL (3.2-4.8); Blood Urea Nitrogen 7 mg/dL (9-23); Calcium 7.9 mg/dL (8.7-10.4); Chloride 108 mmol/L (98-107); Glucose 111 mg/dL (74-106); HDL Cholesterol 23 mg/dL (40-59)
[2024-11-11 08:42] LABS: Total Cells Counted 100.0 (100)
[2024-11-11 08:44] LABS: Anisocytosis Marked
--- NOTE | 2024-11-11 10:38 | DVHPNRES ---
Progress Note Date Seen: Nov 11, 2024 Resident Creating Document: REBECCA CONNOR RESIDENT Medical Necessity Reason Pt with a Central, PICC or Fol: No Subjective Review of Systems Jamey Mcgee is a 69 year old male who presents to the ER due to progressive abdominal distention, abdominal pain, generalized weakness and dyspnea which progressed from Functional Class I to functional class III in approximately 1 week before his admission. He was newly diagnosed with liver cirrhosis associated with ascites approximately three weeks and a half before he this admission, and already required two paracentesis since this recent diagnosis. Patient also reports mild pain on the right side of his shoulder following injury (did not present any falls but hit something without noticing). He reports occasional use of Tylenol for the pain (no more than 1 g per day). Denies chest pain, syncope, mechanical fall, sick contacts, nausea, vomiting, diarrhea, Past medical history: Hypertension, hypercholesterolemia, type 2 diabetes mellitus, newly diagnosed liver cirrhosis unclear etiology (no clear history of ethanol abuse, drinks two beers per weekend) Surgical history: Spine surgery Family history: Reviewed, noncontributory Social history: Lives in [place] with a roommate (next of kin is son). Drinks 2 beers over the weekend. Ex tobacco abuse (one pack-year history of smoking) Quit 20 years ago. Denies current tobacco, alcohol and other drug abuse Allergies: Denies Home medication: Amlodipine 5 mg p.o. daily, atorvastatin 20 mg p.o. daily, furosemide 40 mg p.o. b.i.d., metformin 1000 mg p.o. b.i.d., Occasional Tylenol use Patient seen and examined at bedside. Still complains of abdominal distention abdominal pain. Completed bedside ultrasound-guided paracentesis and obtain 6.7 L of straw color ascitic fluid, pending fluid analysis. Patient presents symptomatic relief after completion of paracentesis. Objective vital signs Vital Sign Date Time Temp Pulse Resp B/P (MAP) Pulse Ox O2 Delivery O2 Flow Rate FiO2 11/11/24 08:36 97.9 84 16 122/60 (80) 96 97.9 11/11/24 01:59 Room Air* 0 21 Total Intake and Output 11/10/24 11/10/24 11/11/24 15:00 23:00 07:00 Intake Total 150 ml Balance 150 ml medications Current Medications Medications Dose Ordered Sig/Mine Route Start Time Stop Time Status Last Admin Dose Admin Ceftriaxone Sodium/Dextrose 50 ml @ 50 mls/hr DAILY IV 11/12/24 10:00 Metronidazole 100 ml @ 100 mls/hr Q8HR IV 11/11/24 14:00 Atorvastatin Calcium 40 mg HS PO 11/11/24 22:00 Furosemide 40 mg BIDD IV 11/11/24 18:00 Examination Pt is lying on bed General Appearance: Alert, Oriented X3, Cooperative, Mild distress HEENT: Atraumatic, Mucous membranes moist/pink Respiratory: Clear to auscultation, Normal air movement, No added sounds Cardiovascular: JVD present, split S2, Regular rate, Normal S1, Normal S2, No murmurs Abdominal/ : Active bowel sounds, Soft, severe distention, hepatomegaly, percussion note dull. no tenderness Extremities: 2+ edema, Normal pulses, No tenderness/swelling, no flapping tremors Skin: No Significant rash, except past surgical scars Neuro: Normal speech, sensorimotor deficits none Psych/Mental Status: Mental status NL, Mood NL Nurse was there as associate professor of library science during examination laboratory and microbiology Laboratory Tests 11/11/24 06:35 Test 11/11/24 06:35 Range/Units Serum Glucose 111 H 74-106 mg/dL Labs and/or images reviewed: Labs reviewed by me, Image(s) reviewed by me Problem List/Assessment/Plan Problem List/Assessment/Plan Decompensated liver cirrhosis (MELD score 10 points, 6% estimated mortality) Liver cirrhosis of unclear etiology with the ascites Portal hypertension Mild Hyperbilirubinemia - Resolved 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 Cirrhosis and portal hypertension with large volume ascites, mesenteric venous congestion, mild splenomegaly, portosystemic collateral vessels Completed therapeutic and diagnostic paracentesis obtaining 6.7 L of straw- colored fluid, 25% albumin replaced. Ascitic fluid sent for cytology, chemistry and culture, pending results Liver cirrhosis etiology is unclear. Unlikely to be secondary to ethanol abuse (ethanol levels were negative, patient claims to only drink two beers per weekend, and patient has microcytic anemia not macrocytic) GI consulted for management of decompensated liver cirrhosis and obtaining correct etiology. Patient will need to follow up as outpatient. Currently under empiric IV antibiotic (ceftriaxone and metronidazole) Acute hepatitis panel, anti-smooth muscle antibody, serum lipase, serum albumin ordered Serum ascitic albumin gradient to be calculated upon the ascitic fluid results available. Required IV furosemide (40 mg IV b.i.d.). We will switch to p.o. on 11/12/2024 Ruled out Acute metabolic versus toxic encephalopathy Patient denies any motor or sensory is deficits, he is oriented in four spheres since his admission. Ammonia levels obtained which were within normal limits No need for head CT at the moment of evaluation Ruled out acute coronary syndrome Troponin x3 negative, EKG showed sinus rhythm with no ST-elevation and prolonged QT, chest x-ray shows mild cardiomegaly with no pulmonary edema. Ordered echocardiogram to evaluate cardiac cause of liver cirrhosis Diabetic - controlled (hemoglobin A1c 6.8%) Essential hypertension Dyslipidemia Normotensive avoid any antihypertensives to start, target blood pressure 140/90 or below as per aha / ACC guidelines. Home medication includes metformin. Was discontinued during hospitalization Currently on mild insulin sliding scale Discontinue atorvastatin in the setting of newly diagnosed liver cirrhosis and relatively normal lipid panel (LDL 68) Hypochromic microcytic anemia likely due to underlying iron-deficiency Eosinophilia RDW, MCV low, check for GI bleed, IV ppi to continue, ferritin and iron certified executive chef labs and look for signs symptoms of atopic disease, asthma, wheezing Moderate to severe protein energy malnutrition Probably secondary to cirrhosis Indicated IV albumin after paracentesis. Multiple pulmonary nodules Observed in abdomen and pelvis CT: Right middle lobe pulmonary nodule (5 mm), there is a 1.1 cm nodule in the left upper lobe Which contains calcification likely from prior granulomatous infection: In appropriate setting with history of immigration concerning for caseating granulomatous. Outpatient low-dose CT follow up. Mild bladder wall thickening which could be related to chronic bladder outlet obstruction Mild prostatomegaly Completed abdomen and pelvis CT which showed mild bladder wall thickening which can correlate with chronic bladder outlet obstruction, mild prostatomegaly Urine analysis was negative for UTI Check PSA, restart tamsulosin 0.4. Correlate with urinalysis if there is clinical concern for cystitis. GI prophylaxis: Pantoprazole DVT prophylaxis: SCDs Diet: Cardiac diet Goals of care discussed with the patient for more than 27 minutes: Full code status Case discussed with Dr. Pappas, patient and RN Plan discussed with: Patient, Other (RN) My Orders My Orders Orders - NIKOLAS,REBECCA RESIDENT Procedure Category Date Status Time Acute Hepatitis Panel LAB 11/11/24 In Process 09:27 Acetaminophen LAB 11/11/24 In Process 09:27 Echo 2d Mode Cardiac US 11/11/24 Logged DOP 09:27 Drug Screen LAB 11/11/24 Logged 09:27 Iron Panel LAB 11/11/24 In Process 09:33 Arielle; Comprehensive LAB 11/11/24 Logged Panel 09:45 Actin (Smooth Muscle) LAB 11/11/24 Logged Antibody 09:45 REBECCA CONNOR RESIDENT Nov 11, 2024 10:38 KARLA SINGH RESIDENT Nov 12, 2024 16:58
[2024-11-11 10:50] LABS: Iron 24.0 ug/dL (65-175)
[2024-11-11 10:57] LABS: Total Iron Binding Capacity 223.0 ug/dL (250-425)
[2024-11-11] MEDS: FUROSEMIDE 40 MG/4 ML VIAL IV ONE (11:10)
[2024-11-11 14:43] LABS: Amphetamine Screen, Urine Neg (NEGATIVE); Barbiturate Scree,Urine Neg (NEGATIVE); Benzodiazephine Screen, Urine Neg (NEGATIVE); Cannabinoid Screen, Urine Neg (NEGATIVE); Cocaine Screen, Urine Neg (NEGATIVE); Opiate Scree,Urine Neg (NEGATIVE); Phencyclidine Screen, Urine Neg (NEGATIVE)
[2024-11-11 15:04] LABS: COVID19 ANTIGEN SOFIA FIA NEGATIVE (NEGATIVE)
[2024-11-11] MEDS: FUROSEMIDE 40 MG/4 ML VIAL IV SCH (18:39)
[2024-11-11] MEDS: ALBUMIN 25% 50 ML IV ONE (20:48)
[2024-11-11] MEDS: ALBUMIN 25% 100 ML IV ONE (21:00)
--- NOTE | 2024-11-11 21:04 | DVHNC2 ---
Other Procedure Procedure Paracentesis Indication Therapeutic and diagnostic ascitic fluid removal Anesthetic Lidocaine Prep All aseptic precautions taken and sterility maintained throughout the process. Success Successful removal of 6700 ascitic fluid Informed consent obtained: Yes Risks, benefits, and alternati: Yes Notes Procedure was performed under supervision of Dr. Segal. Used point of care ultrasound to evaluate best pocket for incision site (lower right abdominal quadrant), previous lidocaine 1% infiltrated and dermis. Date of Service: Nov 11, 2024 Billing Provider: SURENDRA SEGAL MD Common Visit Codes: PROCEDURE ONLY Procedure Codes: 37099-[id number] W/IMAGING REBECCA CONNOR RESIDENT Nov 11, 2024 21:04 KARLA SINGH RESIDENT Nov 12, 2024 16:02
[2024-11-11] MEDS: ATORVASTATIN 20 MG TAB PO SCH (21:39)
[2024-11-12] VITALS (8 sets, daily range): BP systolic 107–132; BP diastolic 64–80; PULSE 71–84; RESP 16–19; TEMP 97.7–98.2; O2SAT 92–100
[2024-11-12 07:48] LABS: Hemoglobin 8.3 g/dL (13.5-17.5); Mean Corpuscular Hemoglobin 25.9 pg (28.0-32.0); Nucleated Red Blood Cells % 0.1 %
[2024-11-12 07:51] LABS: Hematocrit 25.3 % (41.0-53.0); Mean Corpuscular Volume 78.6 fL (80.0-100.0)
[2024-11-12 08:04] LABS: Alanine Aminotransferase 14 U/L (7-40); Alkaline Phosphatase 90 U/L (46-116); Anion Gap 9 (5-15); BUN/Creatinine Ratio 10.5 (10.0-20.0); Carbon Dioxide 25 mmol/L (20-31); Sodium 142 mmol/L (136-145); Total Protein 6.5 g/dL (5.7-8.2)
[2024-11-12 08:06] LABS: Bilirubin, Total 0.9 mg/dL (0.2-1.0)
[2024-11-12 08:09] LABS: Albumin 2.3 g/dL (3.2-4.8); Blood Urea Nitrogen 9 mg/dL (9-23); Calcium 8.2 mg/dL (8.7-10.4); Chloride 108 mmol/L (98-107); Glucose 119 mg/dL (74-106); Potassium 3.3 mmol/L (3.5-5.1)
--- NOTE | 2024-11-12 11:03 | DVHINCON2 ---
Date of service: Nov 12, 2024 Referring Physician Reason for Consultation Cirrhosis of the liver with ascites History of Present Illness 69-year-old male with a history of alcohol abuse alcoholic liver disease came to the emergency room with complaints of abdominal and leg swelling since 20 days patient also has been having dizziness and imbalance when while walking History of alcoholic liver disease with cirrhosis with with cirrhosis with ascites and had paracentesis in the past. Abdominal CT shows cirrhosis with portal hypertension splenomegaly and large volume ascites with a drained about more than 6000 cc of fluid was removed. No symptoms of any gross GI bleed No history of any hepatitis as per the patient Past Medical History Not Past Surgical History Spinal Family History: Alcoholism G8 FATHER Family History Non contribute Social History History of heavy drinking denies smoking or abuse drugs Allergies: Coded Allergies: NO KNOWN ALLERGIES (Unverified , 11/10/24) Home Meds Reported Medications Atorvastatin Calcium (ATORVASTATIN CALCIUM) 20 Mg Tab, 1 TAB PO DAILY, #30 TAB 5 Refills 11/11/24 Furosemide (Furosemide) 40 Mg Tab, 1 TAB PO BID, #30 TAB 5 Refills 11/11/24 Amlodipine Besylate (NORVASC TABLET) 5 Mg Tb, 1 TAB PO DAILY, #30 TAB 5 Refills 11/11/24 Metformin Hydrochloride (Metformin Hcl) 1,000 Mg Tab, 1 TAB PO BID, #60 TAB 5 Refills 11/11/24 Current Medications Current Medications Medications (Trade) Dose Ordered Sig/Mine Route PRN Reason Start Time Stop Time Status Last Admin Ceftriaxone Sodium/Dextrose 50 ml @ 50 mls/hr DAILY IV 11/12/24 10:00 11/12/24 09:41 Metronidazole 100 ml @ 100 mls/hr Q8HR IV 11/11/24 14:00 11/12/24 05:37 Atorvastatin Calcium (Lipitor) 40 mg HS PO 11/11/24 22:00 11/11/24 21:39 Furosemide (Lasix Injection) 40 mg BIDD IV 11/11/24 18:00 11/11/24 18:39 Review of Systems Noncontributory Vital Signs Vital Signs Date Time Temp Pulse Resp B/P (MAP) Pulse Ox O2 Delivery O2 Flow Rate FiO2 11/12/24 08:59 97.8 78 16 107/71 (83) 93 97.8 11/11/24 20:00 Room Air* 0 21 Physical Exam Moderately built and nourished male in no acute distress chronically ill-looking HEENT no icterus Lungs clear Cardiovascular unremarkable Abdomen is mildly distended with some fullness from possible ascites Neuro grossly intact Labs/Diagnostic Data Labs Test 11/12/24 06:25 11/11/24 10:45 11/11/24 06:35 11/11/24 06:10 Range/Units White Blood Count 6.9 4.4-10.8 10^3/uL Red Blood Count 3.22 L 4.5-5.90 10^6/uL Hemoglobin 8.3 L 13.5-17.5 g/dL Hematocrit 25.3 L 41.0-53.0 % Mean Corpuscular Volume 78.6 L 80.0-100.0 fL Mean Corpuscular Hemoglobin 25.9 L 28.0-32.0 pg Mean Corpuscular Hemoglobin Concent 32.9 32.0-36.0 g/dL Red Cell Distribution Width 32.6 H 11.8-14.3 % Platelet Count 134 L 140-450 10^3/uL Mean Platelet Volume 8.2 6.9-10.8 fL Neutrophils (%) (Auto) 51.4 37.0-80.0 % Lymphocytes (%) (Auto) 20.1 10.0-50.0 % Monocytes (%) (Auto) 11.7 0.0-12.0 % Eosinophils (%) (Auto) 15.6 H 0.0-7.0 % Basophils (%) (Auto) 1.2 0.0-2.0 % Neutrophils # (Auto) 3.6 1.6-8.6 10 ^3/uL Lymphocytes # (Auto) 1.4 0.4-5.4 10 ^3/uL Monocytes # (Auto) 0.8 0-1.3 10 ^3/uL Eosinophils # (Auto) 1.1 H 0-0.8 10 ^3/uL Basophils # (Auto) 0.1 0-0.2 10 ^3/uL Nucleated Red Blood Cells 0.1 % Sodium Level 142 136-145 mmol/L Potassium Level 3.3 L 3.5-5.1 mmol/L Chloride Level 108 H 98-107 mmol/L Carbon Dioxide Level 25 20-31 mmol/L Anion Gap 9 5-15 Blood Urea Nitrogen 9 9-23 mg/dL Creatinine 0.86 0.700-1.30 mg/dL Glomerular Filtration Rate Calc 94 >90 mL/min BUN/Creatinine Ratio 10.5 10.0-20.0 Serum Glucose 119 H 74-106 mg/dL Calcium Level 8.2 L 8.7-10.4 mg/dL Total Bilirubin 0.9 0.2-1.0 mg/dL Aspartate Amino Transferase (AST) 31 13-40 U/L Alanine Aminotransferase (ALT) 14 7-40 U/L Alkaline Phosphatase 90 46-116 U/L Total Protein 6.5 5.7-8.2 g/dL Albumin 2.3 L 3.2-4.8 g/dL Differential Total Cells Counted 100.0 100 Neutrophils % (Manual) 56 37.0-80.0 Band Neutrophils % (Manual) 2 Lymphocytes % (Manual) 18 10.0-50.0 Monocytes % (Manual) 8 0-12 Eosinophils % (Manual) 16 H 0-7 Basophils % (Manual) 0 0.0-2.0 Metamyelocytes % (manual) 0 Myelocytes % (Manual) 0 Promyelocytes % (Manual) 0 Blast Cells % (Manual) 0 Reactive Lymphocytes 0 Platelet Estimate Adequate Hypochromasia (manual) Slight Anisocytosis (manual) Marked Microcytosis Slight Hemoglobin A1c 6.8 H <5.7 % A1C Iron Level 24 L 65-175 ug/dL Total Iron Binding Capacity 223 L 250-425 ug/dL Percent Iron Saturation 10.8 L 20-55 % Ammonia 26 11-32 umol/L Triglycerides Level 87 < 150 mg/dL Cholesterol Level 111 < 200 mg/dL LDL Cholesterol 68 < 100 mg/dL HDL Cholesterol 23 L 40-59 mg/dL Lipase 29 12-53 U/L Acetaminophen Level < 2.0 L 10.0-20.0 UG/ML Plasma/Serum Blood Alcohol < 3.0 <10 mg/dL Urine Opiates Screen Neg NEGATIVE Urine Fentanyl Screen Neg NEGATIVE Urine Barbiturates Screen Neg NEGATIVE Urine Phencyclidine Screen Neg NEGATIVE Urine Amphetamines Screen Neg NEGATIVE Urine Benzodiazepines Screen Neg NEGATIVE Urine Cocaine Screen Neg NEGATIVE Urine Cannabinoids Screen Neg NEGATIVE SARS-CoV-2 Antigen (Rapid) Negative NEGATIVE Test 11/11/24 02:18 11/10/24 16:50 11/10/24 16:10 Range/Units Prothrombin Time 13.7 H 9.3-11.8 sec Prothrombin Time INR 1.33 H 0.9-1.15 Urine Color Yellow Yellow Urine Clarity Clear Clear Urine pH 5.5 5.0-9.0 Urine Specific [place] 1.019 1.001-1.035 Urine Protein Negative Negative Urine Ketones Negative Negative Urine Blood Negative Negative /uL Urine Nitrite Negative Negative Urine Bilirubin Negative Negative Urine Urobilinogen Normal Negative mg/dL Urine Leukocyte Esterase Negative Negative /uL Urine RBC 1 0 - 3 /hpf Urine Microscopic WBC 3 0-3 /HPF Urine Squamous Epithelial Cells Few <5 /hpf Urine Bacteria None seen None Seen /hpf Urine Hyaline Casts Few 0 - 2 /lpf Urine Glucose Normal Normal mg/dL Troponin I High Sensitivity < 3 L </=54 ng/L Assessment 81-year-old with alcoholism alcoholic liver disease with the ascites dizziness patient has got cirrhosis portal hypertension large volume ascites no gross bleeding ascites was drained history slightly comfortable now Denies panel is ordered and Pending LFTs are normal Clinical impression alcoholic liver disease with portal hypertension Rule out early encephalopathy Plan/Recommendation Follow liver functions and ammonia levels Watch for closely for bleeding Alcohol rehab and counseling Overall long-term prognosis guarded Thank you Dr. Christian Plan discussed with: Patient ERMIAS CHRISTIAN MD Nov 12, 2024 11:03
[2024-11-12] MEDS: POTASSIUM CHL 20 Meq TABLET PO ONE (11:04)
[2024-11-12] MEDS: POTASSIUM CHL 20MEQ/100ML 100 ML IV ONE (11:05)
[2024-11-12] MEDS: TAMSULOSIN HYDROCHLORIDE 0.4 MG CAP PO SCH (18:57)
[2024-11-12] MEDS: PANTOPRAZOLE 40 MG/10 ML VIAL INJ IV ONE (18:57)
--- NOTE | 2024-11-12 19:35 | DVHPNRES ---
Progress Note Date Seen: Nov 12, 2024 Resident Creating Document: KATLYN VILLAFANA RESIDENT Medical Necessity Reason Pt with a Central, PICC or Fol: No Medical Necessity Reason Jamey Mcgee is a 69 year old male who presents to the ER due to progressive abdominal distention, abdominal pain, generalized weakness and dyspnea which progressed from Functional Class I to functional class III in approximately 1 week before his admission. He was newly diagnosed with liver cirrhosis associated with ascites approximately three weeks and a half before he this admission, and already required two paracentesis since this recent diagnosis. Patient also reports mild pain on the right side of his shoulder following injury (did not present any falls but hit something without noticing). He reports occasional use of Tylenol for the pain (no more than 1 g per day). Denies chest pain, syncope, mechanical fall, sick contacts, nausea, vomiting, diarrhea, Past medical history: Hypertension, hypercholesterolemia, type 2 diabetes mellitus, newly diagnosed liver cirrhosis unclear etiology (no clear history of ethanol abuse, drinks two beers per weekend) Surgical history: Spine surgery Family history: Reviewed, noncontributory Social history: Lives in [place] with a roommate (next of kin is son). Drinks 2 beers over the weekend. Ex tobacco abuse (one pack-year history of smoking) Quit 20 years ago. Denies current tobacco, alcohol and other drug abuse Allergies: Denies Home medication: Amlodipine 5 mg p.o. daily, atorvastatin 20 mg p.o. daily, furosemide 40 mg p.o. b.i.d., metformin 1000 mg p.o. b.i.d., Occasional Tylenol use Patient currently stable and sitting on the bed. Tolerate diet and advanced to regular diet. Awaiting for Ascitic fluid for diagnostic test. Patient feel comfortable in compared to last few days and dyspnea significantly improved. Patient ask for alcohol drinking and reported drinks 1-2 beers per week. Objective vital signs Vital Sign Date Time Temp Pulse Resp B/P (MAP) Pulse Ox O2 Delivery O2 Flow Rate FiO2 11/12/24 16:40 97.9 74 16 132/77 (95) 96 97.9 11/12/24 08:00 Room Air* 0 21 Total Intake and Output 11/11/24 11/11/24 11/12/24 15:00 23:00 07:00 Intake Total 250 ml 1700 ml Balance 250 ml 1700 ml medications Current Medications Medications Dose Ordered Sig/Mine Route Start Time Stop Time Status Last Admin Dose Admin Ceftriaxone Sodium/Dextrose 50 ml @ 50 mls/hr DAILY IV 11/12/24 10:00 11/12/24 09:41 50 MLS/HR Metronidazole 100 ml @ 100 mls/hr Q8HR IV 11/11/24 14:00 11/12/24 14:36 100 MLS/HR Tamsulosin HCl 0.4 mg QPM PO 11/12/24 18:00 11/12/24 18:57 0.4 MG Pantoprazole Sodium 40 mg DAILY IV 11/13/24 10:00 Furosemide 20 mg DAILY PO 11/13/24 10:00 Spironolactone 25 mg DAILY PO 11/13/24 10:00 Examination General Appearance: Alert, Oriented X3, Cooperative, Mild distress HEENT: Atraumatic, Mucous membranes moist/pink Respiratory: Clear to auscultation, Normal air movement, No added sounds Cardiovascular: JVD present, split S2, Regular rate, Normal S1, Normal S2, No murmurs Abdominal/ : Active bowel sounds, Soft, severe distention, hepatomegaly, percussion note dull. no tenderness Extremities: 2+ edema, Normal pulses, No tenderness/swelling, no flapping tremors Skin: No Significant rash, except past surgical scars Neuro: Normal speech, sensorimotor deficits none Psych/Mental Status: Mental status NL, Mood NL Nurse was there as carbon furnace operator helper during examination laboratory and microbiology Laboratory Tests 11/12/24 06:25 Test 11/12/24 06:25 Range/Units Serum Glucose 119 H 74-106 mg/dL Problem List/Assessment/Plan Problem List/Assessment/Plan Decompensated liver cirrhosis (MELD score 10 points, 6% estimated mortality) Liver cirrhosis of unclear etiology with the ascites Portal hypertension Mild Hyperbilirubinemia - Resolved 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 Cirrhosis and portal hypertension with large volume ascites, mesenteric venous congestion, mild splenomegaly, portosystemic collateral vessels Completed therapeutic and diagnostic paracentesis obtaining 6.7 L of straw- colored fluid, 25% albumin replaced. Ascitic fluid sent for cytology, chemistry and culture, pending results Liver cirrhosis etiology is unclear. Unlikely to be secondary to ethanol abuse (ethanol levels were negative, patient claims to only drink two beers per weekend, and patient has microcytic anemia not macrocytic) GI consulted for management of decompensated liver cirrhosis and obtaining correct etiology. Patient will need to follow up as outpatient. Currently under empiric IV antibiotic (ceftriaxone and metronidazole) Acute hepatitis panel, anti-smooth muscle antibody, serum lipase, serum albumin ordered Serum ascitic albumin gradient to be calculated upon the ascitic fluid results available. Required IV furosemide (40 mg IV b.i.d.). We will switch to p.o. on 11/12/2024 Hypokalemia Potassium level 3.3 Potassium chloride 40 mEq BNP Ruled out Acute metabolic versus toxic encephalopathy Patient denies any motor or sensory is deficits, he is oriented in four spheres since his admission. Ammonia levels obtained which were within normal limits No need for head CT at the moment of evaluation Ruled out acute coronary syndrome Troponin x3 negative, EKG showed sinus rhythm with no ST-elevation and prolonged QT, chest x-ray shows mild cardiomegaly with no pulmonary edema. Ordered echocardiogram to evaluate cardiac cause of liver cirrhosis Diabetic - controlled (hemoglobin A1c 6.8%) Essential hypertension Dyslipidemia Normotensive avoid any antihypertensives to start, target blood pressure 140/90 or below as per aha / ACC guidelines. Home medication includes metformin. Was discontinued during hospitalization Currently on mild insulin sliding scale Discontinue atorvastatin in the setting of newly diagnosed liver cirrhosis and relatively normal lipid panel (LDL 68) Hypochromic microcytic anemia likely due to underlying iron-deficiency Eosinophilia RDW, MCV low, check for GI bleed, IV ppi to continue, ferritin and iron hand inspector labs and look for signs symptoms of atopic disease, asthma, wheezing Moderate to severe protein energy malnutrition Probably secondary to cirrhosis Indicated IV albumin after paracentesis. Multiple pulmonary nodules Observed in abdomen and pelvis CT: Right middle lobe pulmonary nodule (5 mm), there is a 1.1 cm nodule in the left upper lobe Which contains calcification likely from prior granulomatous infection: In appropriate setting with history of immigration concerning for caseating granulomatous. Outpatient low-dose CT follow up. Mild bladder wall thickening which could be related to chronic bladder outlet obstruction Mild prostatomegaly Completed abdomen and pelvis CT which showed mild bladder wall thickening which can correlate with chronic bladder outlet obstruction, mild prostatomegaly Urine analysis was negative for UTI Check PSA, restart tamsulosin 0.4. Correlate with urinalysis if there is clinical concern for cystitis. GI prophylaxis: Pantoprazole DVT prophylaxis: SCDs Goals of care discussions. More than 21 minute spent with patient. Full code status. Case discussed with Dr. Pappas Plan discussed with: Patient, Other (Nurse) My Orders My Orders Orders - KATLYN VILLAFANA Procedure Category Date Status Time Consistent DIET 11/12/24 Transmitted Carb(Ccho)Diabetes Lunch KATLYN VILLAFANA RESIDENT Nov 12, 2024 19:35
--- NOTE | 2024-11-12 20:33 | DVHSR ---
APPROVED REPORT EXAM: Two-dimensional and M-mode echocardiogram with Doppler and color Doppler. Blood Pressure: 107/71 mmHg INDICATION Ascites RISK FACTORS Height: 5' 6", Weight: 171 DIMENSIONS LVDd4.6 (3.8-5.7cm)LA (2D)4.0 (1.9-4.0cm)Aortic Root3.3 (2.0-3.7cm) LVDs3.3 (2.5-4.0cm)LA (MM) (1.9-4.0cm)Aortic Cusp Exc1.8 (1.5-2.0cm) EF (%) 55.0 (55-70%)Rt. Atrium3.8 (1.9-4.0cm)Asc. Aorta cm IVSd1.2 (0.7-1.1cm)RV (D) (1.8-2.4cm) PWd1.2 (0.7-1.1cm) Mitral Valve MitralMitral Stenosis E wave0.90m/sMV Mean GR.mmHg A wave0.80m/sMV Peak GR.mmHg E/A ratio1.12D MVAcm2 Aortic Valve Aortic ValveAortic Stenosis V10.80m/Hoda Mean GR.3mmHg V21.10m/Hoda Peak GR.5mmHg LVOT Diameter2.3 (1.8-2.4cm)Doppler AVA3.02cm2 Pulmonic Valve V20.60m/s Tricuspid Valve TR Velocity2.40m/s [id number] Conclusion LV EF IS 65% AND IS NORMAL NORMAL RV FUNCTION AND SIZE NORMAL RV SP AND IS 30 MM OF HG NORMAL VALVES NO EFFUSION
[2024-11-13 01:00] VITALS: BP 101/71; PULSE 96; RESP 18; TEMP 98.1; O2SAT 93
[2024-11-13 05:00] VITALS: BP 116/72; PULSE 88; RESP 16; TEMP 98.1; O2SAT 95
[2024-11-13 07:14] LABS: Anion Gap 8 (5-15); Carbon Dioxide 23 mmol/L (20-31); Potassium 4.1 mmol/L (3.5-5.1); Sodium 140 mmol/L (136-145)
[2024-11-13 07:19] LABS: Hematocrit 24.1 % (41.0-53.0); Hemoglobin 7.9 g/dL (13.5-17.5); Mean Corpuscular Hemoglobin 25.9 pg (28.0-32.0); Mean Corpuscular Volume 78.9 fL (80.0-100.0)
[2024-11-13 07:20] LABS: BUN/Creatinine Ratio 7.1 (10.0-20.0); Magnesium 1.8 mg/dL (1.6-2.6)
[2024-11-13 07:27] LABS: Blood Urea Nitrogen 7 mg/dL (9-23); Calcium 7.7 mg/dL (8.7-10.4); Chloride 109 mmol/L (98-107); Glucose 201 mg/dL (74-106)
[2024-11-13 08:00] VITALS: PULSE 92
[2024-11-13 09:18] VITALS: BP 136/80; PULSE 100; RESP 18; TEMP 98.1; O2SAT 99
[2024-11-13 09:21] LABS: Total Cells Counted 100.0 (100)
[2024-11-13 09:22] LABS: Anisocytosis Moderate
[2024-11-13] MEDS: SPIRONOLACTONE 25 MG TAB PO SCH (10:22)
[2024-11-13] MEDS: FUROSEMIDE 20 MG TAB PO SCH (10:25)
[2024-11-13] MEDS: PANTOPRAZOLE 40 MG/10 ML VIAL INJ IV SCH (10:26)
[2024-11-13 10:37] LABS: Hepatitis B Surface Antigen Negative (Negative); Hepatitis C Antibody Negative (Negative)
[2024-11-13 13:00] VITALS: BP 122/63; PULSE 83; RESP 18; TEMP 98.3; O2SAT 96
[2024-11-13 17:04] VITALS: BP 140/81; PULSE 86; RESP 20; TEMP 97.8; O2SAT 90
[2024-11-13] MEDS ORDERED: SPIR25TA PO (17:18)
[2024-11-13] MEDS ORDERED: TAMS-35 PO (17:18)
[2024-11-13] MEDS ORDERED: CEPH250C PO ×2 (17:18)
--- NOTE | 2024-11-13 20:08 | DVHDSRES ---
Discharge Summary Date of Admission Resident Creating Document: REBECCA CONNOR Nov 10, 2024 at 22:47 Date of Discharge: Nov 13, 2024 Admitting Diagnosis Ascites secondary to liver cirrhosis Labs/Diagnostic Data: Laboratory Results Test 11/13/24 06:45 11/12/24 18:15 11/12/24 16:53 11/12/24 06:25 White Blood Count 5.6 10^3/uL (4.4-10.8) Red Blood Count 3.05 10^6/uL (4.5-5.90) Hemoglobin 7.9 g/dL (13.5-17.5) Hematocrit 24.1 % (41.0-53.0) Mean Corpuscular Volume 78.9 fL (80.0-100.0) Mean Corpuscular Hemoglobin 25.9 pg (28.0-32.0) Mean Corpuscular Hemoglobin Concent 32.8 g/dL (32.0-36.0) Red Cell Distribution Width 32.6 % (11.8-14.3) Platelet Count 129 10^3/uL (140-450) Mean Platelet Volume 7.1 fL (6.9-10.8) Neutrophils (%) (Auto) % (37.0-80.0) Lymphocytes (%) (Auto) % (10.0-50.0) Monocytes (%) (Auto) % (0.0-12.0) Eosinophils (%) (Auto) % (0.0-7.0) Basophils (%) (Auto) % (0.0-2.0) Neutrophils # (Auto) 10 ^3/uL (1.6-8.6) Lymphocytes # (Auto) 10 ^3/uL (0.4-5.4) Monocytes # (Auto) 10 ^3/uL (0-1.3) Differential Total Cells Counted 100.0 (100) Neutrophils % (Manual) 44 (37.0-80.0) Band Neutrophils % (Manual) 2 Lymphocytes % (Manual) 19 (10.0-50.0) Monocytes % (Manual) 15 (0-12) Eosinophils % (Manual) 17 (0-7) Basophils % (Manual) 0 (0.0-2.0) Metamyelocytes % (manual) 0 Myelocytes % (Manual) 0 Promyelocytes % (Manual) 0 Blast Cells % (Manual) 0 Reactive Lymphocytes 3 Platelet Estimate Decreased Anisocytosis (manual) Moderate Microcytosis Slight Sodium Level 140 mmol/L (136-145) Potassium Level 4.1 mmol/L (3.5-5.1) Chloride Level 109 mmol/L (98-107) Carbon Dioxide Level 23 mmol/L (20-31) Anion Gap 8 (5-15) Blood Urea Nitrogen 7 mg/dL (9-23) Creatinine 0.99 mg/dL (0.700-1.30) Glomerular Filtration Rate Calc 83 mL/min (>90) BUN/Creatinine Ratio 7.1 (10.0-20.0) Serum Glucose 201 mg/dL (74-106) Calcium Level 7.7 mg/dL (8.7-10.4) Phosphorus Level 2.5 mg/dL (2.4-5.1) Magnesium Level 1.8 mg/dL (1.6-2.6) Reticulocyte Count (auto) 2.35 % (0.5-1.5) Folic Acid 12.13 ng/mL (>5.38) Eosinophils # (Auto) 1.1 10 ^3/uL (0-0.8) Basophils # (Auto) 0.1 10 ^3/uL (0-0.2) Nucleated Red Blood Cells 0.1 % Ferritin 28.8 ng/mL (22-322) Total Bilirubin 0.9 mg/dL (0.2-1.0) Gamma Glutamyl Transpeptidase 158 U/L (<73) Aspartate Amino Transferase (AST) 31 U/L (13-40) Alanine Aminotransferase (ALT) 14 U/L (7-40) Alkaline Phosphatase 90 U/L (46-116) Total Protein 6.5 g/dL (5.7-8.2) Albumin 2.3 g/dL (3.2-4.8) Carcinoembryonic Antigen 3.58 ng/mL (<=5.0) Test 11/11/24 17:15 11/11/24 10:45 11/11/24 06:35 11/11/24 06:10 Body Fluid pH 7 Hypochromasia (manual) Slight Hemoglobin A1c 6.8 % A1C (<5.7) Iron Level 24 ug/dL (65-175) Total Iron Binding Capacity 223 ug/dL (250-425) Percent Iron Saturation 10.8 % (20-55) Ammonia 26 umol/L (11-32) Triglycerides Level 87 mg/dL (< 150) Cholesterol Level 111 mg/dL (< 200) LDL Cholesterol 68 mg/dL (< 100) HDL Cholesterol 23 mg/dL (40-59) Lipase 29 U/L (12-53) Acetaminophen Level < 2.0 UG/ML (10.0-20.0) Plasma/Serum Blood Alcohol < 3.0 mg/dL (<10) Hepatitis A IgM Antibody Negative Hepatitis B Surface Antigen Negative (Negative) Hepatitis B Core IgM Antibody Negative (Negative) Hepatitis C Antibody Negative (Negative) Urine Opiates Screen Neg (NEGATIVE) Urine Fentanyl Screen Neg (NEGATIVE) Urine Barbiturates Screen Neg (NEGATIVE) Urine Phencyclidine Screen Neg (NEGATIVE) Urine Amphetamines Screen Neg (NEGATIVE) Urine Benzodiazepines Screen Neg (NEGATIVE) Urine Cocaine Screen Neg (NEGATIVE) Urine Cannabinoids Screen Neg (NEGATIVE) SARS-CoV-2 Antigen (Rapid) Negative (NEGATIVE) Test 11/11/24 02:18 11/10/24 16:50 11/10/24 16:10 Prothrombin Time 13.7 sec (9.3-11.8) Prothrombin Time INR 1.33 (0.9-1.15) Urine Color Yellow (Yellow) Urine Clarity Clear (Clear) Urine pH 5.5 (5.0-9.0) Urine Specific [place] 1.019 (1.001-1.035) Urine Protein Negative (Negative) Urine Ketones Negative (Negative) Urine Blood Negative /uL (Negative) Urine Nitrite Negative (Negative) Urine Bilirubin Negative (Negative) Urine Urobilinogen Normal mg/dL (Negative) Urine Leukocyte Esterase Negative /uL (Negative) Urine RBC 1 /hpf (0 - 3) Urine Microscopic WBC 3 /HPF (0-3) Urine Squamous Epithelial Cells Few /hpf (<5) Urine Bacteria None seen /hpf (None Seen) Urine Hyaline Casts Few /lpf (0 - 2) Urine Glucose Normal mg/dL (Normal) Troponin I High Sensitivity < 3 ng/L (</=54) Other Laboratory Tests 11/13/24 06:45 Brief Hx & Hospital Course: Jamey Mcgee is a 69 year old male who presents to the ER due to progressive abdominal distention, abdominal pain, generalized weakness and dyspnea which progressed from Functional Class I to functional class III in approximately 1 week before his admission. He was newly diagnosed with liver cirrhosis associated with ascites approximately three weeks and a half before he this admission, and already required two paracentesis since this recent diagnosis. Patient also reports mild pain on the right side of his shoulder following injury (did not present any falls but hit something without noticing). He reports occasional use of Tylenol for the pain (no more than 1 g per day). Denies chest pain, syncope, mechanical fall, sick contacts, nausea, vomiting, diarrhea, Past medical history: Hypertension, hypercholesterolemia, type 2 diabetes mellitus, newly diagnosed liver cirrhosis unclear etiology (no clear history of ethanol abuse, drinks two beers per weekend) Surgical history: Spine surgery Family history: Reviewed, noncontributory Social history: Lives in [place] with a roommate (next of kin is son). Drinks 2 beers over the weekend. Ex tobacco abuse (one pack-year history of smoking) Quit 20 years ago. Denies current tobacco, alcohol and other drug abuse Allergies: Denies Home medication: Amlodipine 5 mg p.o. daily, atorvastatin 20 mg p.o. daily, furosemide 40 mg p.o. b.i.d., metformin 1000 mg p.o. b.i.d., Occasional Tylenol use Brief hospital course: Decompensated liver cirrhosis (meld score 10 points) with ascites, requiring on admission IV diuretics, IV antibiotics (ceftriaxone and metronidazole) and diagnostic and therapeutic paracentesis with removal of 6.7 L straw-colored ascitic fluid, replenishing albumin. During admission completed CT of abdomen and pelvis and ultrasound which showed moderate to severe 4 quadrant ascites, cirrhosis and portal hypertension, mesenteric venous congestion, mild splenomegaly, portosystemic collateral vessels. GI specialist evaluated patient and recommended follow up as outpatient. Sent ascitic fluid for analysis, Gram stain and hepatitis panel was negative, rest of results pending (anti smooth muscle antibody, ascitic fluid results). During hospitalization arterial metabolic syndrome, after going to syndrome and UTI were ruled out. Abdomen and pelvis CT also showed mild bladder wall thickening which can correlate with chronic bladder outlet obstruction, mild prostatomegaly. Since patient is asymptomatic for dysuria, only initiate a tamsulosin 0.4 mg p.o. daily at this time. Liver cirrhosis etiology is unclear, patient that% during hospitalization eosinophilia, rule out as outpatient primary biliary cirrhosis and autoimmune hepatitis, as per GI specialist. Incidental finding in abdomen and pelvis CT were two pulmonary lung nodules, follow up as outpatient with pulmonology. Patient hemodynamically stable, asymptomatic, in condition to be discharged home. Was granted under optimal medical therapy (furosemide 40 mg p.o. b.i.d., spironolactone 25 mg p.o. daily, tamsulosin 0.4 mg p.o. daily, and Keflex for 5 days, continue rest of home medications), gave advice on healthy lifestyle habits (diet low in sodium and low and fatty foods, avoid hepatotoxic medication and alcohol), and follow up with PCP, GI specialist and school plant consultant. 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 Rule out spontaneous bacterial peritonitis Cirrhosis and portal hypertension with large volume ascites, mesenteric venous congestion, mild splenomegaly, and portosystemic collateral vessels Hypokalemia Ruled out Acute metabolic versus toxic encephalopathy Ruled out acute coronary syndrome Diabetic - controlled (hemoglobin A1c 6.8%) Essential hypertension Dyslipidemia Hypochromic microcytic anemia likely due to underlying iron-deficiency Eosinophilia Moderate to severe protein energy malnutrition Multiple pulmonary nodules Mild bladder wall thickening which could be related to chronic bladder outlet obstruction Mild prostatomegaly Goals of care discussions. More than 21 minute spent with patient. Full code status. Case discussed with Dr. Pappas, patient and nurses Examination General Appearance: Alert, Oriented X3, Cooperative, Mild distress HEENT: Atraumatic, Mucous membranes moist/pink Respiratory: Clear to auscultation, Normal air movement, No added sounds Cardiovascular: JVD present, split S2, Regular rate, Normal S1, Normal S2, No murmurs Abdominal/ : Active bowel sounds, Soft, mild-moderate distention, hepatomegaly, percussion note dull. no tenderness Extremities: 2+ edema, Normal pulses, No tenderness/swelling, no flapping tremors Skin: No Significant rash, except past surgical scars Neuro: Normal speech, sensorimotor deficits none Psych/Mental Status: Mental status NL, Mood NL Nurse was there as jig fitter during examination Operations or Procedures CXR: Normal CT abdomen pelvis: 1. Cirrhosis and portal hypertension with large volume ascites, mesenteric venous congestion, mild splenomegaly, and portosystemic collateral vessels. 2. Mild hepatic steatosis. 3. Mild bladder wall thickening which could be related to chronic bladder outlet obstruction in the setting of mild prostatomegaly. Correlate with urinalysis if there is clinical concern for cystitis. 4. There is a 5 mm right middle lobe pulmonary nodule, nonspecific on initial exam. If there are risk factors for pulmonary malignancy, follow-up CT chest recommended in 1 year. 5. Mild cardiomegaly and at least mild calcified coronary artery disease partially imaged. 6. There is a 1.1 cm nodule in the left upper lobe which contains calcification likely from prior granulomatous infection. Single organ ultrasound:Moderate ascites seen within all 4 quadrants. INDICATION: FLUID CHECK TECHNIQUE: Multiple real-time sonographic images of the kidneys and bladder were obtained. COMPARISON: None FINDINGS/IMPRESSION: Moderate ascites seen within all 4 quadrants. ATED BY: NIRU CHAMPAGNE MD DICTATED DATE/TIME: 11/10/24 5040 EXAM: Two-dimensional and M-mode echocardiogram with Doppler and color Doppler. Blood Pressure: 107/71 mmHg INDICATION Ascites RISK FACTORS Height: 5' 6", Weight: 171 DIMENSIONS LVDd 4.6 (3.8-5.7cm) LA (2D) 4.0 (1.9-4.0cm) Aortic Root 3.3 (2.0- 3.7cm) LVDs 3.3 (2.5-4.0cm) LA (MM) (1.9-4.0cm) Aortic Cusp Exc 1.8 (1.5- 2.0cm) EF (%) 55.0 (55-70%) Rt. Atrium 3.8 (1.9-4.0cm) Asc. Aorta cm IVSd 1.2 (0.7-1.1cm) RV (D) (1.8-2.4cm) PWd 1.2 (0.7-1.1cm) Mitral Valve Mitral Mitral Stenosis E wave 0.90m/s MV Mean GR. mmHg A wave 0.80m/s MV Peak GR. mmHg E/A ratio 1.1 2D MVA cm2 Aortic Valve Aortic Valve Aortic Stenosis V1 0.80m/s AO Mean GR. 3mmHg V2 1.10m/s AO Peak GR. 5mmHg LVOT Diameter 2.3 (1.8-2.4cm) Doppler PEYTON 3.02cm2 Pulmonic Valve V2 0.60m/s Tricuspid Valve TR Velocity 2.40m/s RVSP 30mmHg Conclusion LV EF IS 65% AND IS NORMAL NORMAL RV FUNCTION AND SIZE NORMAL RV SP AND IS 30 MM OF HG NORMAL VALVES NO EFFUSION SIGNED BY: LIONEL GU MD SIGNED DATE/TIME: 11/12/242032 CLINICAL HISTORY: abdominal pain TECHNIQUE: CT of the abdomen and pelvis was performed with intravenous contrast. This exam was performed according to our departmental dose optimization program. Up-to-date CT equipment and radiation dose reduction techniques are utilized as appropriate. 13.24 CTDIVol: 13.24 mGy DLP: 799.63 mGy-cm WID: COMPARISON: US ABDOMEN LIMITED on DOS: 11/10/24 Lower Thorax: 5 mm right middle lobe pulmonary nodule on series 4, image 7. There is linear bibasilar scarring and/or atelectasis . there is a 1.1 cm nodule which contains internal calcification on series 4, image 17. Mild cardiomegaly and trace pericardial fluid. At least mild calcified coronary artery disease partially imaged. Partially imaged mediastinal and right hilar calcified lymph nodes. Liver and Biliary system: Cirrhotic liver. There is mild hepatic steatosis. Portosystemic collateral vessels are seen. Major portal veins are patent. No discrete hepatic lesion. Gallbladder is normal caliber. There is no biliary ductal dilatation. Spleen: Mild Splenomegaly. Adrenal Glands and Kidneys: Unremarkable. Pancreas and Retroperitoneum: Unremarkable. Aorta and Major Vessels: Aortoiliac vessels are patent and normal caliber containing [id number] calcified atherosclerotic plaque. Bowel, Mesentery and Peritoneal space: Normal caliber small and large bowel. Normal appendix. Mild wall thickening of the ascending and transverse colon. There is large volume ascites and mesenteric venous congestion. No free air or fluid collection. Pelvis: Mild prostatomegaly. Dystrophic calcifications in the prostate gland. Mild wall thickening of the urinary bladder. There is no pelvic lymphadenopathy. Abdominal wall and Osseous Structures: There is ascites coursing into both fat containing bilateral inguinal hernias. There is body wall edema. Bilateral rods and transpedicular screws at L3-L5 and interbody spaces at L3-L4 and L4-L5. Multilevel mild lower thoracic and lumbar spondylosis. IMPRESSION: 1. Cirrhosis and portal hypertension with large volume ascites, mesenteric venous congestion, mild splenomegaly, and portosystemic collateral vessels. 2. Mild hepatic steatosis. 3. Mild bladder wall thickening which could be related to chronic bladder outlet obstruction in the setting of mild prostatomegaly. Correlate with urinalysis if there is clinical concern for cystitis. 4. There is a 5 mm right middle lobe pulmonary nodule, nonspecific on initial exam. If there are risk factors for pulmonary malignancy, follow-up CT chest recommended in 1 year. 5. Mild cardiomegaly and at least mild calcified coronary artery disease partially imaged. 6. There is a 1.1 cm nodule in the left upper lobe which contains calcification likely from prior granulomatous infection. ATED BY: ROBINSON FRANKLIN MD DICTATED DATE/TIME: 11/10/242238 CHEST RADIOGRAPH Indication: SOB Technique: Single frontal view of the chest was obtained Comparison: XR CHEST 1 VIEW on DOS: 10/20/24, XR CHEST 1 VIEW on DOS: 10/08/24 FINDINGS: Lines and Tubes: None Lungs: No focal consolidation. Pleura: No effusion. No pneumothorax. Cardiomediastinal contours: Unremarkable Bones: No acute osseous abnormality. IMPRESSION: 1. No acute cardiopulmonary disease. 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 Rule out spontaneous bacterial peritonitis Cirrhosis and portal hypertension with large volume ascites, mesenteric venous congestion, mild splenomegaly, and portosystemic collateral vessels Hypokalemia Ruled out Acute metabolic versus toxic encephalopathy Ruled out acute coronary syndrome Diabetic - controlled (hemoglobin A1c 6.8%) Essential hypertension Dyslipidemia Hypochromic microcytic anemia likely due to underlying iron-deficiency Eosinophilia Moderate to severe protein energy malnutrition Multiple pulmonary nodules Mild bladder wall thickening which could be related to chronic bladder outlet obstruction Mild prostatomegaly Discharge Disposition: Home SNF Discharge Will this Physician continue t: No Discharge Instruct/Medications Diet: Consistent carbohydrate, Cardiac 2g Na,low cholest Activity: No Restrictions, As Tolerated Follow Up/Referral: Follow up with PCP, DC clinic, Gastro outpatient Medications: as per EMR Scheduled Amlodipine Besylate (Norvasc Tablet), 1 TAB PO DAILY, (Reported) Atorvastatin Calcium (Atorvastatin Calcium), 1 TAB PO DAILY, (Reported) Cephalexin (Keflex Capsule), 1 CAP PO QID Furosemide (Furosemide), 1 TAB PO BID, (Reported) Metformin Hydrochloride (Metformin Hcl), 1 TAB PO BID, (Reported) Spironolactone (Aldactone), 25 MG PO DAILY Tamsulosin Hcl (Flomax), 0.4 MG PO QPM Discharge Statement: "Patient was advised to return to the ER or call 911 if any headaches, dizziness, shortness of breath, chest pain, abdominal pain, bleeding, fevers, or worsening of medical condition. Patient was counseled about treatment plan, medications, possible side effects, patientverbalized understanding. All questions were answered to the best of my ability. This discharge took greater then 30 minutes in planning, reviewing documentation, counseling the patient, and discussing with other team members." ASSESSMENT ASSESSMENT Assessment Alcohol related chronic liver disease REBECCA CONNOR RESIDENT Nov 13, 2024 20:08 KARLA SINGH RESIDENT Nov 16, 2024 06:09
[2024-11-14 16:07] LABS: Albumin, Body Fluid 0.5 g/dL (Not Estab.); Glucose, Body Fluid 127.0 mg/dL (.); LD, Body Fluid 65.0 IU/L (.)
[2024-11-15 12:07] LABS: Anti-Centromere B Antibody <0.2 AI (0.0-0.9); Anti-Jo-1 Antibody <0.2 AI (0.0-0.9); Anti-dsDNA Antibody 1 IU/mL (0-9); Antichromatin Antibody 0.2 AI (0.0-0.9); Antiscleroderma-70 Antibody <0.2 AI (0.0-0.9); Sjogren's Anti-SS-A Antibody 0.3 AI (0.0-0.9); Sjogren's Anti-SS-B Antibody <0.2 AI (0.0-0.9)
== END 2024-11-13 18:35 | disposition home or self-care (01) | DRG 432 ==
LOC: ER 13:27 → OVERFLOW 22:47 → TELE-WESTW 11-11 01:50
PROVIDERS: ADMIT Student in an Organized Health Care Education/Training Program; ATTEND Student in an Organized Health Care Education/Training Program
PROC: 0W9G3ZZ Drainage of Peritoneal Cavity, Percutaneous Approach (ICD-10-PCS; principal; 2024-11-11)
DX: K70.31 Alcoholic cirrhosis of liver with ascites (principal); E43 Unspecified severe protein-calorie malnutrition; K65.2 Spontaneous bacterial peritonitis; D68.8 Other specified coagulation defects; K76.6 Portal hypertension; R91.1 Solitary pulmonary nodule; I25.10 Atherosclerotic heart disease of native coronary artery without angina pectoris; E11.9 Type 2 diabetes mellitus without complications; F10.20 Alcohol dependence, uncomplicated; K70.9 Alcoholic liver disease, unspecified; D72.10 Eosinophilia, unspecified; N32.0 Bladder-neck obstruction; N40.0 Benign prostatic hyperplasia without lower urinary tract symptoms; D50.9 Iron deficiency anemia, unspecified; E78.00 Pure hypercholesterolemia, unspecified; E80.6 Other disorders of bilirubin metabolism; E87.6 Hypokalemia; Z79.84 Long term (current) use of oral hypoglycemic drugs; Z79.899 Other long term (current) drug therapy; Z68.28 Body mass index [BMI] 28.0-28.9, adult
CPT/HCPCS: 36415; 71045; 74177; 76705; 80048; 80053; 80061; 80074; 80307; 80320; 80329; 81001; 82105; 82140; 82150; 82378; 82728; 82746; 82977; 83010; 83036; 83516; 83540; 83550; 83690; 83735; 83986; 84100; 84484; 85007; 85025; 85027; 85045; 85610; 86225; 86235; 86301; 86880; 87071; 87205; 87426; 93005; 93306; G0378; J2470; J3480; J3490

== ENCOUNTER 2024-12-01 09:26 | Outpatient (CLI) | payer MEDICARE ==
[~2024-12-01] VITALS: Ht 167.6 cm; Wt 76.2 kg
[~2024-12-01 09:26] MED LIST: AML5T PO; ATOR20TA50 PO; CEPH250C PO; FURO40TA4 PO; METF-372 PO; SPIR25TA PO; TAMS-35 PO
[2024-12-01] MEDS: ALBUMIN 25% 100 ML IV ONE ×2 (11:39→11:43)
--- NOTE | 2024-12-01 11:40 | DVH ---
US PARACENTESIS, HISTORY: LIVER CIRRHOSIS PROCEDURE: Informed consent was obtained. The patient was placed in supine position. A limited locali zation ultrasound of the abdomen was obtained, and the skin site over the largest pocket of fluid was marked and entry site was prepped with chlorhexidine which was allowed to dry and draped in the usua l sterile fashion. Time out was performed. Following administration of 1% lidocaine local anesthetic, a 5 Divehi centesis needle catheter was percutaneously inserted into the peritoneal collection until fluid was aspirated. The catheter was advanced into the fluid collection and the needle removed. Abo ut 770 cc of fluid was aspirated . The catheter was then removed and a sterile dressing applied. 25 g m of albumin colloid infusion was given IV. No immediate complication was identified. FINDINGS: Limited ultrasound imaging demonstrates moderate ascites. Aspirated fluid was clear and ser ous. IMPRESSION: US-guided paracentesis with 7.7L removed.
[2024-12-02 12:07] LABS: Glucose, Body Fluid 187.0 mg/dL (.); LD, Body Fluid 84.0 IU/L (.)
== END 2024-12-01 17:00 | disposition home or self-care (01) ==
LOC: US 09:26
PROVIDERS: ATTEND Nurse Practitioner
DX: K74.69 Other cirrhosis of liver (principal); F32.A Depression, unspecified; Z79.84 Long term (current) use of oral hypoglycemic drugs; Z79.899 Other long term (current) drug therapy; Z81.1 Family history of alcohol abuse and dependence
CPT/HCPCS: 49083; 83986; 87071; 87205; 89051; C1729; P9047; 76942

== ENCOUNTER 2024-12-15 12:20 | Outpatient (CLI) | payer MEDICARE ==
--- NOTE | 2024-12-15 14:30 | DVH ---
US PARACENTESIS, HISTORY: FLUID IN ABDOMEN, LIVER CIRRHOSIS PROCEDURE: Informed consent was obtained. The patient was placed in supine position. A limited locali zation ultrasound of the abdomen was obtained, and the skin site over the largest pocket of fluid was marked and entry site was prepped with chlorhexidine which was allowed to dry and draped in the usua l sterile fashion. Time out was performed. Following administration of 1% lidocaine local anesthetic, a 5 Beninese centesis needle catheter was percutaneously inserted into the peritoneal collection until fluid was aspirated. The catheter was advanced into the fluid collection and the needle removed. [place] 6500 cc of fluid was aspirated . The catheter was then removed and a sterile dressing applied. No immediate complication was identified. FINDINGS: Limited ultrasound imaging demonstrates moderate ascites. Aspirated fluid was clear and ser ous. IMPRESSION: US-guided paracentesis with 6.5L removed.
== END 2024-12-15 17:00 | disposition home or self-care (01) ==
LOC: XYW 12:20
PROVIDERS: ATTEND Internal Medicine
DX: K70.31 Alcoholic cirrhosis of liver with ascites (principal)
CPT/HCPCS: 49083; 76705; C1729; 76942

== ENCOUNTER 2024-12-27 12:39 | Outpatient (CLI) | payer MEDICARE ==
--- NOTE | 2024-12-27 14:43 | DVH ---
PROCEDURE: ULTRASOUND GUIDED PARACENTESIS HISTORY: 69 Male requiring paracentesis. TECHNIQUE: The risks and benefits of the procedure including but not limited to bleeding, infection and injury t o abdominal organs were explained to the patient and written informed consent was obtained. Optimal site for puncture was determined using ultrasound and the area sterilized and draped. Using a 5 Colombian Yueh catheter, paracentesis was performed in the right lower abdomen. Approximately 7.5 liters of straw colored fluid was removed. The patient tolerated the procedure well. There were no i mmediate complications. IMPRESSION: US-guided paracentesis with 7.5L removed. Procedure by Dr. Zendejas
[2024-12-29 13:07] LABS: Glucose, Body Fluid 179.0 mg/dL (.)
== END 2024-12-27 17:00 | disposition home or self-care (01) ==
LOC: US 12:39
PROVIDERS: ATTEND Internal Medicine
DX: K74.60 Unspecified cirrhosis of liver (principal); F32.A Depression, unspecified; Z79.899 Other long term (current) drug therapy; Z81.1 Family history of alcohol abuse and dependence
CPT/HCPCS: 49083; 83986; 87071; 87205; 89051; C1729; 76705; 76942

== ENCOUNTER 2025-01-05 09:15 | Outpatient (CLI) | payer MEDICARE ==
[2025-01-05 10:06] LABS: Hemoglobin 10.2 g/dL (13.5-17.5); Nucleated Red Blood Cells % 0.1 %
[2025-01-05 10:08] LABS: Hematocrit 31.7 % (41.0-53.0); Mean Corpuscular Hemoglobin 25.6 pg (28.0-32.0); Mean Corpuscular Volume 79.8 fL (80.0-100.0)
[2025-01-05 10:22] LABS: INR 1.22 (0.9-1.15); Partial Thromboplastin Time 29.3 SEC (24.5-34.5); Prothrombin Time 12.7 sec (9.3-11.8)
--- NOTE | 2025-01-05 11:53 | DVH ---
US PARACENTESIS, HISTORY: LIVER CIRRHOSIS PROCEDURE: Informed consent was obtained. The patient was placed in supine position. A limited locali zation ultrasound of the abdomen was obtained, and the skin site over the largest pocket of fluid was marked and entry site was prepped with chlorhexidine which was allowed to dry and draped in the usua l sterile fashion. Time out was performed. Following administration of 1% lidocaine local anesthetic, a 5 Hungarian centesis needle catheter was percutaneously inserted into the peritoneal collection until fluid was aspirated. The catheter was advanced into the fluid collection and the needle removed. Abo ut 7200 cc of fluid was aspirated . The catheter was then removed and a sterile dressing applied. No immediate complication was identified. FINDINGS: Limited ultrasound imaging demonstrates moderate ascites. Aspirated fluid was clear and ser ous. IMPRESSION: US-guided paracentesis with 7.2L removed.
[2025-01-06 13:07] LABS: Glucose, Body Fluid 138.0 mg/dL (.)
== END 2025-01-05 17:00 | disposition home or self-care (01) ==
LOC: US 09:15
PROVIDERS: ATTEND Internal Medicine
DX: K74.60 Unspecified cirrhosis of liver (principal); R18.8 Other ascites; F32.1 Major depressive disorder, single episode, moderate; Z79.899 Other long term (current) drug therapy; Z81.1 Family history of alcohol abuse and dependence
CPT/HCPCS: 36415; 49083; 83986; 85025; 85610; 85730; 87071; 87205; 89051; C1729; 76942

== ENCOUNTER 2025-01-19 12:38 | Outpatient (CLI) | payer MEDICARE ==
--- NOTE | 2025-01-19 15:11 | DVH ---
US PARACENTESIS, HISTORY: LIVER CIRRHOSIS PROCEDURE: Informed consent was obtained. The patient was placed in supine position. A limited localization ultrasound of the abdomen was obtained, and the skin site over the largest pocket of fluid was marked and entry site was prepped with chlorhexidine which was allowed to dry and draped in the usual sterile fashion. Time out was performed. Following administration of 1% lidocaine local anesthetic, a 5 Greek centesis needle catheter was percutaneously inserted into the peritoneal collection until fluid was aspirated. The catheter was advanced into the fluid collection and the needle removed. About 7200 cc of fluid was aspirated and specimen sent for appropriate cultures/cytology/cultures and cy tology. The catheter was then removed and a sterile dressing applied. No immediate complication was identified. FINDINGS: Limited ultrasound imaging demonstrates moderate ascites. Aspirated fluid was clear and serous. IMPRESSION: US-guided paracentesis with 7.2L removed.
[2025-01-23 13:07] LABS: Glucose, Body Fluid 186.0 mg/dL (.)
== END 2025-01-22 17:00 | disposition home or self-care (01) ==
LOC: US 12:38
PROVIDERS: ATTEND Nurse Practitioner
DX: K74.60 Unspecified cirrhosis of liver (principal); R18.8 Other ascites; F32.A Depression, unspecified; Z79.84 Long term (current) use of oral hypoglycemic drugs; Z79.899 Other long term (current) drug therapy; Z81.1 Family history of alcohol abuse and dependence
CPT/HCPCS: 49083; 83986; 87071; 87205; 89051; C1729; 76705; 76942

== ENCOUNTER 2025-01-26 12:17 | Outpatient (CLI) | payer MEDICARE ==
--- NOTE | 2025-01-26 13:50 | DVH ---
PROCEDURE: ULTRASOUND GUIDED PARACENTESIS HISTORY: 69 Male requiring paracentesis. TECHNIQUE: The risks and benefits of the procedure including but not limited to bleeding, infection and injury to abdominal organs were explained to the patient and written informed consent was obtained. Optimal site for puncture was determined using ultrasound and the area sterilized and draped. Using a 5 Bel[place]ian [employer] catheter, paracentesis was performed in the right lower quadrant abdomen. Approximately 7.45 liters of clear fluid was removed. The patient tolerated the procedure well. There were no immediate complications. IMPRESSION: 1. Ultrasound-guided paracentesis with no immediate complications.
[2025-01-30 14:07] LABS: Glucose, Body Fluid 161.0 mg/dL (.); LD, Body Fluid 53.0 IU/L (.)
== END 2025-01-26 17:00 | disposition home or self-care (01) ==
LOC: US 12:17
PROVIDERS: ATTEND Nurse Practitioner
DX: R18.8 Other ascites (principal); K74.60 Unspecified cirrhosis of liver; F32.A Depression, unspecified; Z79.84 Long term (current) use of oral hypoglycemic drugs; Z79.899 Other long term (current) drug therapy
CPT/HCPCS: 49083; 83986; 87071; 87205; 89051; C1729; 76705; 76942

== ENCOUNTER 2025-02-16 10:00 | Outpatient (CLI) | payer MEDICARE ==
[2025-02-16 10:54] LABS: INR 1.18 (0.9-1.15); Partial Thromboplastin Time 28.8 SEC (24.5-34.5); Prothrombin Time 12.3 sec (9.3-11.8)
== END 2025-02-16 17:00 | disposition home or self-care (01) ==
LOC: LAB 10:00
PROVIDERS: ATTEND Nurse Practitioner
DX: K74.60 Unspecified cirrhosis of liver (principal)
CPT/HCPCS: 36415; 85610; 85730

== ENCOUNTER 2025-02-16 10:39 | Outpatient (CLI) | payer MEDICARE ==
[~2025-02-16] VITALS: Ht 165.1 cm; Wt 76.7 kg
[2025-02-16] MEDS ORDERED: ALBUMIN 25% 50 ML IV ONE (12:30)
--- NOTE | 2025-02-16 12:50 | DVH ---
ULTRASOUND GUIDED PARACENTESIS HISTORY: 69 years old, Male; LIVER CIRRHOSIS. COMPARISON: US PARACENTESIS on DOS: 02/08/25, US PARACENTESIS on DOS: 01/26/25, US PARACENTESIS on DOS: 01/19/25, US PARACENTESIS on DOS: 01/05/25, US PARACENTESIS on DOS: 12/27/24 Pre-procedure diagnosis:Ascites Post-procedure diagnosis: Same Complications: No immediate complications. IMPRESSION/PLAN: 1. Successful ultrasound guided paracentesis PROCEDURE DETAILS: Pre-procedure Informed consent for the procedure was obtained and time-out was performed prior to the procedure. Preparation (MIPS): The site was prepared and draped using elements of sterile barrier technique including sterile gloves, sterile ultrasound probe cover, hand hygiene and cutaneous antisepsis with 2% chlorhexidine. Anesthesia/sedation Level of anesthesia/sedation: Minimal sedation (anxiolysis) Anesthesia/sedation administered by: Sedation was administered under attending supervision with continuous monitoring of the level of consciousness and physiologic status by an independent trained observer. Procedure Ultrasound Pre-procedure Findings: Large volume ascites Access Location: Right lower quadrant Access catheter: 18G One Step needle/catheter Access technique: Under direct US guidance. Fluid collected with Vacutainer. Total fluid:9450 mL Additional Details Equipment details: None Specimens: No fluid sent for laboratory testing Estimated blood loss: Less than 10 mL
[2025-02-17 14:07] LABS: Glucose, Body Fluid 152.0 mg/dL (.)
== END 2025-02-16 17:00 | disposition home or self-care (01) ==
LOC: US 10:39
PROVIDERS: ATTEND Nurse Practitioner
DX: R18.8 Other ascites (principal); K74.60 Unspecified cirrhosis of liver; F32.A Depression, unspecified; Z79.899 Other long term (current) drug therapy; Z79.84 Long term (current) use of oral hypoglycemic drugs
CPT/HCPCS: 49083; 83986; 87071; 87205; 89051; C1729; P9047; 76942

== ENCOUNTER 2025-02-23 10:20 | Outpatient (CLI) | payer MEDICARE ==
--- NOTE | 2025-02-23 11:38 | DVH ---
PROCEDURE: ULTRASOUND GUIDED PARACENTESIS HISTORY: 69 Male requiring paracentesis. TECHNIQUE: The risks and benefits of the procedure including but not limited to bleeding, infection and injury to abdominal organs were explained to the patient and written informed consent was obtained. Optimal site for puncture was determined using ultrasound and the area sterilized and draped. Using a 5 [place] catheter, paracentesis was performed in the right lower quad abdomen. Approximately 9.1 liters of clear fluid was removed. The patient tolerated the procedure well. There were no immed iate complications. IMPRESSION: 1. Ultrasound-guided paracentesis with no immediate complications.
[2025-02-24 13:07] LABS: Glucose, Body Fluid 178.0 mg/dL (.)
== END 2025-02-23 17:00 | disposition home or self-care (01) ==
LOC: US 10:20
PROVIDERS: ATTEND Nurse Practitioner
DX: R18.8 Other ascites (principal); K74.60 Unspecified cirrhosis of liver; F32.A Depression, unspecified; Z79.84 Long term (current) use of oral hypoglycemic drugs; Z79.899 Other long term (current) drug therapy; Z81.1 Family history of alcohol abuse and dependence
CPT/HCPCS: 49083; 76705; 76942; 83986; 87071; 87205; 89051

== ENCOUNTER 2025-03-02 10:30 | Outpatient (CLI) | payer MEDICARE ==
--- NOTE | 2025-03-02 11:55 | DVH ---
US PARACENTESIS, HISTORY: LIVER CIRHOSSIS, ASCITES PROCEDURE: Informed consent was obtained. The patient was placed in supine position. A limited localization ultrasound of the abdomen was obtained, and the skin site over the largest pocket of fluid was marked and entry site was prepped with chlorhexidine which was allowed to dry and draped in the usual sterile fashion. Time out was performed. Following administration of 1% lidocaine local anesthetic, a 5 [place] centesis needle catheter was percutaneously inserted into the peritoneal collection until fluid was aspirated. The catheter was advanced into the fluid collection and the needle removed. About 6000 cc of fluid was aspirated . The catheter was then removed and a sterile dressing applied. IV. No immediate complication was identified. FINDINGS: Limited ultrasound imaging demonstrates moderate ascites. Aspirated fluid was clear and serous. IMPRESSION: US-guided paracentesis with 6L removed.
[2025-03-06 13:07] LABS: Glucose, Body Fluid 190.0 mg/dL (.); LD, Body Fluid 43.0 IU/L (.)
== END 2025-03-02 17:00 | disposition home or self-care (01) ==
LOC: US 10:30
PROVIDERS: ATTEND Nurse Practitioner
DX: R18.8 Other ascites (principal); K74.60 Unspecified cirrhosis of liver; F32.A Depression, unspecified; Z79.84 Long term (current) use of oral hypoglycemic drugs; Z79.899 Other long term (current) drug therapy; Z81.1 Family history of alcohol abuse and dependence
CPT/HCPCS: 49083; 76942; 83986; 87071; 87205; 89051